=== PATIENT | male | born 1965 | race Caucasian/White ===

== ENCOUNTER 2024-04-24 07:33 | Emergency (ER) | payer OTHER, SELFPAY ==
[2024-04-24 07:48] VITALS: BP 155/92; PULSE 81; RESP 18; TEMP 36.2; O2SAT 93; BMI 34.6
--- NOTE | 2024-04-24 07:58 | CRLHL7_ITS ---
For Patients: As a result of the Century Cures Act, medical imaging exams and procedure reports are released immediately into your electronic medical record. You may view this report before your referring provider. If you have questions, please contact your health care provider. Indication: Injury. Technique: Three view(s) of the left thumb. Comparison: None available. Findings: There is a comminuted and displaced fracture of the thumb distal phalanx involving the tuft and extending proximally to the base along the radial margin. No definite intra-articular fracture extension is seen. There is approximately 1 shaft width palmar displacement of the main fracture fragment as well as an apex dorsally angulated butterfly fragment. There is adjacent soft tissue swelling. No definite soft tissue gas. No additional fracture is seen. Moderate thumb carpometacarpal osteoarthritis. Impression: Comminuted and displaced thumb distal phalanx fracture without definite intra-articular extension. Dictated by Mary Casey MD @ 04/24/2024 8:32:54 AM (Electronically Signed)
--- NOTE | 2024-04-24 08:03 | ED.GENADULT ---
HPI - General Adult General Chief complaint: Extremity Pain/Injury, Upper Stated complaint: Smashed thumb - Work Comp Time Seen by Provider: 04/24/24 07:55 History of Present Illness HPI narrative: It is a 58-year-old gentleman who works at [employer] heavy object on his left thumb today. This happened at work and he has split the skin open of his nail bed. He has no significant injuries elsewhere in the injuries are located in the distal tip of the left thumb. He appears to be up-to-date on his tetanus shot he has had no significant chest pain shortness a breath orthopnea or PND. Bleeding has been controlled. Related Data Home Medications ?Medication ?Instructions ?Recorded ?Confirmed aspirin 81 mg tablet,delayed 81 mg PO DAILY 04/24/24 04/24/24 release (Adult Low Dose Aspirin) losartan 50 mg tablet 50 mg PO DAILY 04/24/24 04/24/24 pravastatin 20 mg tablet 20 mg PO DAILY 04/24/24 04/24/24 Allergies Allergy/AdvReac Type Severity Reaction Status Date / Time No Known Drug Allergies Allergy Verified 04/24/24 07:52 Review of Systems Status of ROS: Reports: 10 or more systems reviewed and unremarkable except as noted in History and below Exam Narrative: Exam Narrative: EXAM GENERAL: Patient appears comfortable and well. EYES: No scleral icterus. LYMPH: No supraclavicular or cervical lymphadenopathy. SKIN: Visible skin seen during exam normal or with benign process only. EXT: Injury noted left thumb with splitting of the nail and slight abrasions. HEART: Regular rate and rhythm with no murmurs, rubs, or gallops. LUNGS: Clear to auscultation bilaterally with no crackles or wheezes. ABD: Soft, non tender, non distended. PSYCH: Good eye contact, speech is not pressured. Const: Vital Signs, click to edit/add: Vital Signs - 24 hr 04/24/24 07:48 Temperature 97.2 F L Pulse Rate [Pulse Oximeter] 81 Respiratory Rate 18 Blood Pressure [Ri ght Upper Arm] 155/92 H Pulse Oximetry 93 Oxygen Delivery Me thod Room Air Course Course ED Course: Patient seen and examined. X-ray of the left thumb ordered. Vital Signs Vital signs: Initial Vital Signs Temperature 97.2 F L 04/24/24 07:48 Temperature Source Temporal Artery Scan 04/24/24 07:48 Pulse Rate 81 04/24/24 07:48 Respiratory Rate 18 04/24/24 07:48 Blood Pressure 155/92 H 04/24/24 07:48 Blood Pressure Mean 113 H 04/24/24 07:48 Blood Pressure Position Supine 04/24/24 07:48 Pulse Oximetry 93 04/24/24 07:48 Oxygen Delivery Method Room Air 04/24/24 07:48 Vital Signs Temperature 97.2 F L 04/24/24 07:48 Pulse Rate 81 04/24/24 07:48 Respiratory Rate 18 04/24/24 07:48 Blood Pressure 155/92 H 04/24/24 07:48 Pulse Oximetry 93 04/24/24 07:48 Oxygen Delivery Method Room Air 04/24/24 07:48 Temperature 97.2 F L 04/24/24 07:48 Pulse Rate 81 04/24/24 07:48 Respiratory Rate 18 04/24/24 07:48 Blood Pressure 155/92 H 04/24/24 07:48 Pulse Oximetry 93 04/24/24 07:48 Oxygen Delivery Method Room Air 04/24/24 07:48 Medical Decision Making MDM Narrative Medical decision making narrative: Patient is a 58-year-old gentleman who his left thumb with a hammer at work. He has suffered number of skin tears and a crush nail. Also has fracture of the tip of the digit. We did clean the wound major his tetanus shot is up-to-date and dress the wound. I recommended Augmentin for the next 7 days and follow-up with primary care/Orthopedics. Tylenol Motrin as needed for pain. Discharge Plan Discharge Clinical Impression: Finger injury Patient Disposition: Home, Self-Care Condition: Stable Instructions: Finger Fracture (ED) Additional Instructions: Augmentin as directed Tylenol Motrin Ice Follow-up with your doctor to arrange orthopedic care. Activity Level: No Restrictions Discharge Diet: Regular Prescriptions: No Action losartan 50 mg tablet 50 mg PO DAILY pravastatin 20 mg tablet 20 mg PO DAILY aspirin [Adult Low Dose Aspirin] 81 mg tablet,delayed release (DR/EC) 81 mg PO DAILY Follow Up/Referrals: Provider,Not a Local [Primary Care Provider] - Stand Alone Forms: [facility] Info Instructions
--- OUTSIDE RECORDS SUMMARY | 2024-04-24 08:28 | XMS_ITS | Encounter Summary ---
Author Organization [facility] Address [address] [place] [id number] Care Team Providers Care [employer] Superintendent Name Role Phone Mary Arleth Torres APRN, C.N.P., D.N.P. Primary Care Provider Reason for Visit * Reason Comments Participation in Child's Genetic Testing Encounter Details Date Type Department Care Team (Late st Contact Info) Description 02/11/2024 Documentation Department of Medical Genetics in [place], [place] [address] [place] [address] Kristi Castillo M.S., [facility] [address] [place] [address] Participation in Child's Genetic Testing Social History Tobacco Use Types Packs/Day Years Used Date Smoking Tobacco: Never Passive Smoke Exposure: Never Smokeless Tobacco: Current Chew Comments:Chews a tin in 2-3 days. Since age 19. Alcohol Use Standard Drinks/Week Comments Yes 2 (1 standard drink = 0.6 oz pur e alcohol) maybe once month or less Humiliation, Afraid, Rape, and Kick questionnair e Answer Date Recorded Within the last year, have y ou been afraid of your partner or ex-partner? No 09/21/2021 Within the last year, have y ou been humiliated or emotionally abused in other ways by your partner or ex-partner? No Within the last year, have y ou been kicked, hit, slapped, or otherwise physically hurt by your partner or ex-partner? No 09/21/2021 Within the last year, have y ou been raped or forced to have any kind of sexual activity by your partner or ex-partner? No 09/21/2021 Social Connection and Isolat ion Panel [NHANES] Answer Date Recorded In a typical week, how many times do you talk on the phone with family, friends, or neighbors? More than three times a week 09/21/2021 How often do you get togethe r with friends or relatives? More than three times a week 09/21/2021 How often do you attend [facility] or shinto services? More than 4 times per year 09/21/2021 Do you belong to any clubs o r organizations such as restorationism groups, unions, fraternal or athletic groups, or school groups? No 09/21/2021 How often do you attend meet ings of the clubs or organizations you belong to? Never 09/21/2021 Are you , , di vorced, , never , or living with a partner? 09/21/2021 AUDIT-C Answer Date Recorded Q1: How often do you have a drink containing alc ohol? Monthly or less 09/21/2021 Q2: How many drinks containi ng alcohol do you have on a typical day when you are drinking? 3 or 4 09/21/2021 Q3: How often do you have si x or more drinks on one occasion? Less than monthly 09/21/2021 Overall Financial Resource Strain (CARDIA) Answe r Date Recorded How hard is it for you to pa y for the very basics like food, housing, medical care, and heating? Not hard at all 09/21/2021 PHQ-2 Answer Date Recorded PHQ-2 Score 0 08/22/2023 [facility] - Occupational Stress Questionnaire Answer Date Recorded Do you feel stress - tense, restless, nervous, or anxious, or unable to sleep at night because your mind is troubled all the time - these days? Not at all 09/21/2021 Exercise Vital Sign Answer Date Recorde d On average, how many days pe r week do you engage in moderate to strenuous exercise (like a brisk walk)? 0 days 09/21/2021 On average, how many minutes do you engage in exercise at this level? 0 min 09/21/2021 Hunger Vital Sign Answer Date Recorded Within the past 12 months, y ou worried that your food would run out before you got the money to buy more. Never true 09/21/20 21 Within the past 12 months, t he food you bought just didn't last and you didn't have money to get more. Never true 09/21/2021 PRAPARE - Transportation Answer Date Re corded In the past 12 months, has l ack of transportation kept you from medical appointments or from getting medications? No 09/12 In the past 12 months, has l ack of transportation kept you from meetings, work, or from getting things needed for daily living? No 09/21/2021 Housing Stability Vital Sign Answer Tawanda e Recorded In the last 12 months, was t here a time when you were not able to pay the mortgage or rent on time? No 09/21/2021 In the last 12 months, how many places have you lived? 1 09/21/2021 In the last 12 months, was t here a time when you did not have a steady place to sleep or slept in a halfway (including now)? No 09/21/2021 Nutrition Answer Date Recorded On average, how many serving s of fruits and vegetables do you eat per day (serving size is equal to 1 cup or approximately the size of a tennis ball)? 0-1 09/21/2021 Dental Answer Date Recorded Dental: Regular Dentist Yes 11/12/19 23 Employment Answer Date Recorded Employment status Employed and actively working without restrictions 09/21/2021 Education Answer Date Recorded What is the highest level of school you have completed or the highest degree you have received? Associate degree: occupational, technical, or vocational program 09/21/2021 Sex and Gender Information Value Date Recorded Sex Assigned at Not on file Gender Identity Not on file Sexual Orientation Not on file documented as of this encounter Progress Notes * Kristi Castillo M.S., [facility] [place] 02/11/2024 8:45 AM CDT CHIEF COMPLAINT/PURPOSE OF VISIT Parental testing for whole genome sequencing. HISTORY OF PRESENT ILLNESS The patient's child has been admitted to the CVICU and meets clinical criteria for whole genome sequencing. This was reviewed by Dr. Tricia Bull MD and Dr. Frieda Sequeira. Please refer to Dr. Sequeira's clinical note in the proband's chart for further details. IMPRESSION/REPORT/PLAN #1 Parental testing for whole genome sequencing We discussed the role of whole genome sequencing (WGS) as a potential means to identify an underlying genetic cause for their child's medical concerns. After we reviewed the benefits and limitations of testing, it was determined that whole genome sequencing for their child would be pursued. As partof this process a DNA specimen from the parents is also included. Testing will be completed by [facility] clinical laboratory. PLAN: A blood sample will be collected and used to facilitate interpretation of their child's WGS testing. Results of WGS will be issued under the child's name and documented in the child's medical record. documented in this encounter Plan of Treatment Not on file documented as of this encounter Visit Diagnoses Diagnosis Testing Genetic- Primary documented in this encounter Care Teams [employer] Superintendent Relationship Specialty Start Date End Date Arleth Hernandez APRN, C.N.P., D.N.P. [address] [place] [address] PCP - General 02/23/21 02/14/24 documented as of this encounter
--- OUTSIDE RECORDS SUMMARY | 2024-04-24 08:28 | XMS_ITS | Referral Summary ---
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 Primary Care Provid er Source Comments Patient records contain information from all sites at [facility]. For routine questions regarding patient records, call [phone] during business hours, M-F 8:00 AM - 5:00 PM Central Time. Record requests for emergency care only can be directed to [phone] at any time.[facility] Encounters Date Type Department Care Team Description 03/05/2024 8:30 AM CDT Office Visit Department of Orthopedic Surgery in [address] [phone] Chavez Randall D.P.MJosefina Diabetes Mellitus Type 2 (HCC) (Primary Dx) Discharge Disposition: Home or Self Care 02/15/2024 Clinical Communication Department of Family Medicine, [facility], in [place], [place] [address] [place] [phone] Matt Hernandez APRN, C.N.P. 02/15/2024 10:30 AM CDT Office Visit Department of Family Medicine, [facility], in [place], [place] [address] [place] [phone] Matt Hernandez APRN, C.N.P. Diabetes Mellitus Type 2 (HCC) (Primary Dx); Hyperlipidemia; Hypertension Essential Primary 02/15/2024 6:59 AM CDT - 02/15/2024 11:59 PM CDT Hospital Encounter Department of Laboratory Medicine in [place], [place] [address] [place] [address] Amber Romero D.O. Diabetes Mellitus Type 2 Hyperglycemia (HCC); Hyperlipidemia Discharge Disposition: Home or Self Care 02/15/2024 6:58 AM CDT Hospital Encounter Department of Laboratory Medicine in [place], [place] [address] [place] [address] Amber Romero D.O. Diabetes Mellitus Type 2 Hyperglycemia (HCC); Hyperlipidemia; Pain Knee Left Discharge Disposition: Home or Self Care 02/11/2024 Documentation Department of Medical Genetics in [place], [place] [address] [place] [address] Kristi Castillo M.S., [facility] [place]ation in Child's Genetic Testing from Last 3 Months Allergies No known active allergies Medications Medication Sig Dispensed Refills Start Date End Date Status losartan (COZAAR) 50 mg tablet Take 1 tablet (50 mg total) by mouth daily. 90 tablet 3 08/22/2023 Active lancetsIndications:Indu betes Mellitus Type 2 Hyperglycemia (HCC) 1 each daily. 100 each 2 09/19/2023 Active alcohol swabs pads, medicatedIndications:D iabetes Mellitus Type 2 Hyperglycemia (HCC) Use as needed for diabetes control 1500 each 3 09/19/2023 Active blood sugar diagnostic stripsIndications:Diab etes Mellitus Type 2 Hyperglycemia (HCC) 1 test daily. 100 test 3 09/19/2023 Active blood-glucose meter miscIndications:Diabet es Mellitus Type 2 Hyperglycemia (HCC) Test as directed for diabetes control. 1 each 1 09/19/2023 Active blood glucose ctl high,nml,low solutionIndications:Di abetes Mellitus Type 2 Hyperglycemia (HCC) Glucose control solution provides an easy way to ensure accurate blood glucose testing. 1 each 11 09/19/2023 Active pravastatin (PRAVACHOL) 40 mg tablet Take 1 tablet (40 mg total) by mouth daily. 90 tablet 3 02/15/20[address] tablet Take 81 mg by mouth daily. Active Active Problems Problem Noted Date Diagnosed Date Diabetes Mellitus Type 2 10/12/2023 Body Mass Index 35.0 To 35.9 Adult 09/19/2023 Hypertension Essential Primary 08/22/2023 Nicotine Dependence Chewing Tobacco 09/21/2021 Overview: Chew daily, but finishes a tin in 2-3 days. Since age 19. Attempted quitting a couple of times, with longest being 6-8 months. Fatty Liver 01/15/2008 Abnormal Serum Enzyme Test 08/07/2007 Hyperlipidemia 06/28/2007 Lipoma 10/10/2005 Resolved Problems Problem Noted Date Diagnosed Date Resolved Date Dyspnea NOS 11/14/2006 09/21/2021 Mass Head 10/10/2005 09/21/2021 Immunizations Name Administration Dates Next Due H1N1 All Forms 11/23/2009 Influenza, Injectable, Mdck, Quadrivalent 2020 Influenza, Injectable, Quadrivalent 08/24/2020 Td, (Adult) Unspecified 09/21/2005 Tdap 05/27/2015 Social History Tobacco Use Types Packs/Day Years Used Date Smoking Tobacco: Never Passive Smoke Exposure: Never Smokeless Tobacco: Current Chew Tobacco Cessation:Ready to Q uit: Not Asked; Counseling Given: Not Answered Comments:Chews a tin in 2-3 days. Since [...] week 09/21/2021 How often do you attend chur or samaritan services? More than 4 times per year 09/21/2021 Do you belong to any clubs o r organizations such as druze groups, unions, fraternal or athletic groups, or [...] Answer Date Recorded PHQ-2 Score 0 08/22/2023 [facility] - [...] place to sleep or slept in a senior care (including now)? No 09/21/2021 Nutrition Answer Date Recorded On average, how many serving s of fruits and vegetables do you eat per day (serving size is equal to 1 cup or approximately the size of a tennis ball)? 0-1 09/21/2021 Dental Answer Date Recorded Dental: Regular Dentist Yes 11/12/19 Employment Answer Date Recorded Employment status Employed [...] on file Sexual Orientation Not on file Last Filed Vital Signs Vital Sign Reading Time Taken Comments Blood Pressure 126/81 02/15/2024 10:16 AM CDT Pulse 84 02/15/2024 10:16 AM CDT Temperature 36.4 ??C (97.6 ??F) 02/15/2024 10:16 AM C DT Respiratory Rate 14 02/15/2024 10:16 AM CDT Oxygen Saturation 95% 11/04/2021 10:43 AM SPRING FITTER HELPER Inhaled Oxygen Concentration - - Weight 117 kg (258 lb 2.5 oz) 02/15/2024 10:16 A M CDT Height 187 cm (6' 1.62) 02/15/2024 10:16 AM CDT Body Mass Index 33.49 02/15/2024 10:16 AM CDT Plan of Treatment Not on file Procedures Procedure Name Priority Date/Time Associated Diagnosis Comments ALBUMIN, RANDOM, U Routine 02/15/2024 7: 15 AM CDT Diabetes Mellitus Type 2 Hyperglycemia (HCC) Hyperlipidemia CBC WITHOUT DIFFERENTIAL, B Routine 02/15/2024 7:13 AM CDT Pain Knee Left Diabetes Mellitus Type 2 Hyperglycemia (HCC) Hyperlipidemia LIPID PANEL, S Routine 02/15/2024 7:13 AM CDT Diabetes Mellitus Type 2 Hyperglycemia (HCC) Hyperlipidemia COMPREHENSIVE METABOLIC PANEL, S/P Routine 02/15/2024 7:13 AM CDT Diabetes Mellitus Type 2 Hyperglycemia (HCC) Hyperlipidemia HEMOGLOBIN A1C, B Routine 02/15/2024 7:1 3 AM CDT Diabetes Mellitus Type 2 Hyperglycemia (HCC) Hyperlipidemia [facility] Routine 02/11/2024 10:28 AM CDT HIV-1/-2 AG AND AB SCREEN, PLASMA Routine 09/22/2021 4:41 PM SPRING FITTER HELPER Screening For Venereal Disease HCV AB SCRN W/REFLEX TO HCV PCR, S Routine 02/28/2018 8:25 AM CDT Screening Examination For Viral Disease COLONOSCOPY Routine 04/28/2015 from Last 3 Months or Most Recently Relevant to Health Maintenance Results * Albumin, Random, Urine (02/15/2024 7:15 AM CDT) Microalbumin <12.0 mg/L 02/15/2024 8:06 AM CDT [facility] Comment:If clinically indica justine, contact the lab for additional testing. Creatinine 204 mg/dL 02/15/2024 8:06 AM CDT [facility] Albumin/Creatinine Ratio <6 <17 mg/g 02/15/2024 8:06 AM CDT [facility] Comment: This ratio may not correspond with the reference range because one or both of the values used to calculate the ratio was above or below the quantification limits. Urine (Urine, Midstream) 02/15/2024 7:15 AM CDT 02/15/2024 7:15 AM CDT Amber Romero D.O. LAB URINE ORDERABLES [facility] [address] [place] [address], [facility] in [place] [address] [place] [address] * (ABNORMAL) Lipid Panel (02/15/2024 7:13 AM CDT) Triglycerides 162(H) mg/dL 02/15/2024 8:47 AM CDT [facility] Comment: ----REFERENCE VALUE---- Normal: <150 mg/dL Borderline High: 150-199 mg/dL High: 200-499 mg/dL Very High: > or =500 mg/dL Cholesterol, Total 144 mg/dL 2023 8:47 AM CDT [facility] Comment: ----REFERENCE VALUE---- Desirable: < 200 mg/dL Borderline High: 200 - 239 mg/dL High: > or = 240 mg/dL Cholesterol, LDL, Calculated 89 mg/dL 02/15/2024 8:47 AM CDT [facility] Comment: ----REFERENCE VALUE---- Desirable: <100 mg/dL Above Desirable: 100-129 mg/dL Borderline High: 130-159 mg/dL High: 160-189 mg/dL Very High: >=190 mg/dL ----ADDITIONAL INFORMATION---- LDL cholesterol calculated using the Becker/NIH equation. Cholesterol, HDL 26(L) >=40 mg/dL 02/15/20 8:47 AM CDT [facility] Cholesterol, Non-HDL, Calculated 118 mg/dL 02/15/2024 8:47 AM CDT [facility] Comment: ----REFERENCE VALUE---- Desirable: <130 mg/dL Above Desirable: 130-159 mg/dL Borderline High: 160-189 mg/dL High: 190-219 mg/dL Very High: > or =220 mg/dL Fasting (8 HR or more) Yes 02/15/2024 7:14 AM CDT [facility] Blood (Blood, Venous) 02/15/2024 7:13 AM CDT 02/15/2024 7:14 AM CDT Amber Romero D.O. LAB BLOOD ADD-ON [facility] [address] [place] [address], [facility] OW[facility] in [place] [address] [place] [address] * CBC without Differential (02/15/2024 7:13 AM CDT) Hemoglobin 15.6 13.2 - 16.6 g/dL 02/15/2024 7:27 AM CDT [facility] Hematocrit 46.1 38.3 - 48.6 % 02/15/2024 7:27 AM CDT [facility] Erythrocytes 5.42 4.35 - 5.65 x10(12)/L 02/15/2024 7:27 AM CDT [facility] MCV 85.1 78.2 - 97.9 fL 02/15/2024 7:27 AM CDT [facility] RBC Distrib Width 13.2 11.8 - 14.5 % 02/15/2024 7:27 AM CDT [facility] Platelet Count 197 135 - 317 x10(9)/L 02/15/2024 7:27 AM CDT [facility] Leukocytes 8.0 3.4 - 9.6 x10(9)/L 02/15/2024 7:27 AM CDT [facility] Blood (Blood, Venous) 02/15/2024 7:13 AM CDT 02/15/2024 7:14 AM CDT Amber Romero D.O. LAB BLOOD ADD-ON [facility] [address] [place] [address], [place] [facility] in [place] [address] [place] [address] * (ABNORMAL) Hemoglobin A1c (02/15/2024 7:13 AM CDT) Hemoglobin A1c, B 5.8(H) 4.2 - 5.6 % 02/15/2024 8:09 AM CDT [facility] Comment: Hemoglobin A1c values of 5.7-6.4 percent indicate an increased risk for developing diabetes mellitus. In diabetic patients, HbA1c goals should be discussed with healthcare provider. Blood (Blood, Venous) 02/15/2024 7:13 AM CDT 02/15/2024 7:14 AM CDT Amber Romero D.O. LAB BLOOD ADD-ON [facility] [address] [place] [address], [facility] OW[facility] in [place] [address] [place] [address] * Comprehensive Metabolic Panel (02/15/2024 7:13 AM CDT) Potassium, P 4.4 3.6 - 5.2 mmol/L 02/15/2024 8:47 AM CDT [facility] Sodium, P 139 135 - 145 mmol/L 02/15/2024 8:47 AM CDT [facility] Chloride, P 105 98 - 107 mmol/L 02/15/2024 8:47 AM CDT [facility] Bicarbonate, P 24 22 - 29 mmol/L 02/15/2024 8:47 AM CDT [facility] Anion Gap, P 10 7 - 15 02/15/2024 8:47 AM CDT [facility] BUN (Blood Urea Nitrogen), P 16 8 - 24 mg/dL 02/15/2024 8:47 AM CDT [facility] Creatinine 0.89 0.74 - 1.35 mg/dL 02/15/2024 8:47 AM CDT [facility] Estimated GFR (eGFR) >90 >=60 mL/min/BS A 02/15/2024 8:47 AM CDT [facility] Comment: Estimated GFR calculated using the 2020 CKD_EPI creatinine equation. Calcium, Total, P 8.9 8.6 - 10.0 mg/dL 02/15/2024 8:47 AM CDT [facility] Glucose, P 104 70 - 140 mg/dL 02/15/2024 8:47 AM CDT [facility] Protein, Total, P 7.1 6.3 - 7.9 g/dL 02/15/2024 8:47 AM CDT [facility] Albumin, P 4.2 3.5 - 5.0 g/dL 02/15/2024 8:47 AM CDT [facility] Aspartate Aminotransferase (AST), P 25 8 - 48 U/L 02/15/2024 8:47 AM CDT [facility] Alkaline Phosphatase, P 83 40 - 129 U/L 02/15/2024 8:47 AM CDT [facility] Alanine Aminotransferase (ALT), P 30 7 - 55 U/L 02/15/2024 8:47 AM CDT [facility] Bilirubin, Total, P 0.7 0.0 - 1.2 mg/dL 02/15/2024 8:47 AM CDT [facility] Blood (Blood, Venous) 02/15/2024 7:13 AM CDT 02/15/2024 7:14 AM CDT Amber Romero D.O. LAB BLOOD ADD-ON [facility] [address] [place] [address], [facility] OW[facility] in [place] [address] [address] * [facility] - Sent Out Lab (02/11/2024 10:28 AM CDT) Test Name rapid genome 02/11/2024 2:43 PM CDT [facility] Result SEE COMMENT 02/11/2024 3:33 PM CDT [facility] Comment: Specimen for relative received, testing to follow. See final combined results under proband specimen order when testing is complete. 02/11/2024 10:2 8 AM CDT 02/11/2024 2:43 PM CDT Tricia CURRY MISC ORDERA BLES [facility] [address], [address] [place] [address], [place] [facility] [address], [address] [place] [address] * HIV-1/-2 Ag and Ab Screen, Plasma (09/22/2021 4:41 PM SPRING FITTER HELPER) HIV Ag/Ab Screen, P Negative Negative 09/24/2021 2:48 PM SPRING FITTER HELPER [facility] Comment: Negative result does not rule out HIV infection. If exposure to HIV infection occurred <14 days ago, contact the laboratory to request addition of HIV-1 RNA detection / quantification test. HIV-1 p24 Ag Screen, P Negative Negative 09/24/2021 2:48 PM SPRING FITTER HELPER [facility] Comment: Negative result does not rule out HIV infection. If exposure to HIV infection occurred <14 days ago, contact the laboratory to request addition of HIV-1 RNA detection / quantification test. HIV-1 Ab Screen, P Negative Negative 2020 2:48 PM SPRING FITTER HELPER [facility] Comment: Negative result does not rule out HIV infection. If exposure to HIV infection occurred <14 days ago, contact the laboratory to request addition of HIV-1 RNA detection / quantification test. HIV-2 Ab Screen, P Negative Negative 2020 2:48 PM SPRING FITTER HELPER [facility] Comment: Negative result does not rule out HIV infection. If exposure to HIV infection occurred <14 days ago, contact the laboratory to request addition of HIV-1 RNA detection / quantification test. Blood (Blood, Venous) 09/22/2021 4:41 PM SPRING FITTER HELPER 09/23/2021 11:57 AM SPRING FITTER HELPER Arleth Hernandez APRN, C.N.P., D.N.P. LAB M ICROBIOLOGY - BLOOD ORDERABLES [facility] [address] [place] [address], [place] [facility] in [place] [address] [place] [address] * HCV AB Scrn w/Reflex to HCV PCR, S (02/28/2018 8:25 AM CDT) HCV Ab Screen, S Negative Negative 03/01/2018 8:38 AM CDT [facility] Comment:[id number] rat io is <1.00. Blood (Blood, Venous) 02/28/2018 8:25 AM CDT 03/01/2018 6:57 AM CDT Kar Shepherd APRN, C.N.P. LAB MICROBIOL OGY - BLOOD ORDERABLES [facility] [address] [place] [address] * Colonoscopy (04/28/2015) Pathologist [facility] EXT Colonoscopy Abnormal - See Scanned Report for Details Normal - See Scanned Report for Details, HIMS - Report Received and Scanned Historical Provider GI PROCEDURE ORDERAB LES from Last 3 Months or Most Recently Relevant to Health Maintenance Care Teams [employer] Air[employer] Officer Relationship Specialty Start Date End Date Matt Hernandez APRN, C.N.P. [address] [place] [phone] PCP - General Family Medicine 02/15/24
--- OUTSIDE RECORDS SUMMARY | 2024-04-24 08:28 | XMS_ITS | Encounter Summary ---
Author Organization [facility] Address [address] [place] [address] Care Team Providers Care Lube Technician Name Role Phone Matt Hernandez APRN, C.N.P. Primary Care Provid er Reason for Referral * Outpatient (Routine) - Authorized Specialty Diagnoses / Procedures Referred By Marianela arzate Referred To Contact Family Medicine Matt Hernandez APRN, C.N.P. [address], [place] [address] [facility] Region Referral ID Status Reason Start Date Expiration Date V isits Requested Visits Authorized [id number] Authorized 02/15/2024 08/16/2025 1 1 Reason for Visit * Reason Comments Diabetes * Outpatient (Routine) - Closed Specialty Diagnoses / Procedures Referred By Marianela arzate Referred To Contact Family Medicine Diagnoses Diabetes Mellitus Type 2 Hyperglycemia (HCC) Hyperlipidemia Hypertension Essential Primary Amber Romero D.O. [address], [place] [address] [facility] Region Referral ID Status Reason Start Date Expiration Date Visits Re quested Visits Authorized [id number] Closed 09/19/2023 09/18/2026 1 1 Encounter Details Date Type Department Care Team (Late st Contact Info) Description 02/15/2024 10:30 AM CDT Office Visit Department of Family Medicine, [facility], in [place], [place] [address] [phone] Matt Hernandez, RAISIN WASHER, C.N.P. [address] [place] [address] Diabetes Mellitus Type 2 (HCC) (Primary Dx); Hyperlipidemia; Hypertension Essential Primary Social History Tobacco Use Types Packs/Day Years [...] 09/21/2021 How often do you attend chur ch or baptism services? More than 4 times per year 09/21/2021 Do you belong to any clubs o r organizations such as samaritan groups, unions, fraternal or athletic groups, or [...] Answer Date Recorded PHQ-2 Score 0 08/22/2023 [facility] ional Health - Occupational Stress [...] place to sleep or slept in a intermediate (including now)? No 09/21/2021 Nutrition Answer Date [...] on file documented as of this encounter Last Filed Vital Signs Vital Sign Reading Time Taken Comments Blood Pressure 126/81 02/15/2024 10:16 AM CDT Pulse 84 02/15/2024 10:16 AM CDT Temperature 36.4 ??C (97.6 ??F) 02/15/2024 10:16 AM C DT Respiratory Rate 14 02/15/2024 10:16 AM CDT Oxygen Saturation - - Inhaled Oxygen Concentration - - Weight 117 kg (258 lb 2.5 oz) 02/15/2024 10:16 A M CDT Height 187 cm (6' 1.62) 02/15/2024 10:16 AM CDT Body Mass Index 33.49 02/15/2024 10:16 AM CDT documented in this encounter Progress Notes * Matt Hernandez, AIRAM, C.N.P. - 02/15/2024 10:30 AM CDT SUBJECTIVE CHIEF COMPLAINT/REASON FOR VISIT Gregorio Horowitz is a 58 y.o. male who presents for evaluation of Diabetes. HISTORY OF PRESENT ILLNESS Gregorio Horowitz is a delightful 58 y.o. male here for the management of chronic conditions. He has a history of diabetes in his managing his diabetes through diet and exercise. His previous hemoglobin A1c was 6.9 in his most current hemoglobin A1c is 5.8. He recently had a diabetic eye exam whichcame back normal. He takes pravastatin 20 mg daily. He does not complain of any chest pain, dyspnea, swelling in his legs, numbness, tingling. REVIEW OF SYSTEMS See History of Present Illness. Remainder of Review of Systems reviewed and are negative. MEDICAL HISTORY Patient Active Problem List Diagnosis Abnormal Serum Enzyme Test Fatty Liver Hyperlipidemia Lipoma Nicotine Dependence Chewing Tobacco Hypertension Essential Primary Body Mass Index 35.0 To 35.9 Adult Diabetes Mellitus Type 2 (HCC) SURGICAL HISTORY Past Surgical History: Procedure Laterality Date APPENDECTOMY N/A 07/14/2002 Appendectomy; for ruptured appendix with abscess or generalized peritonitis.. COLONOSCOPY 2014 FAMILY HISTORY Family History Problem Relation Age of Onset Liver cancer Mother Hypertension Mother Leukemia Father Heart valve replacement - prosthesis Father CABG - Coronary artery bypass graft Father Hypertension Father Diabetes Father No Known Problems Sister No Known Problems Sister No Known Problems Sister Hypertension Brother Hypertension Brother No Known Problems Brother No Known Problems Brother No Known Problems Maternal Grandmother No Known Problems Maternal Grandfather No Known Problems Paternal Grandmother No Known Problems Paternal Grandfather No Known Problems Daughter No Known Problems Son SOCIAL HISTORY Social History Tobacco Use Smoking status: Never Passive exposure: Never Smokeless tobacco: Current Types: Chew Tobacco comments: Chews a tin in 2-3 days. Since age 19. Substance Use Topics Alcohol use: Yes Alcohol/week: 2.0 - 3.0 standard drinks of alcohol Types: 2 - 3 Cans of beer per week Comment: maybe once month or less CURRENT MEDICATIONS Current Outpatient Medications on File Prior to Visit Medication Sig Dispense Refill alcohol swabs pads, medicated Use as needed for diabetes control 1500 each 3 blood glucose ctl high,nml,low solution Glucose control solution provides an easy way to ensure accurate blood glucose testing. 1 each 11 blood sugar diagnostic strips 1 test daily. 100 test 3 blood-glucose meter misc Test as directed for diabetes control. 1 each 1 lancets 1 each daily. 100 each 2 losartan (COZAAR) 50 mg tablet Take 1 tablet (50 mg total) by mouth daily. 90 tablet 3 [DISCONTINUED] pravastatin (PRAVACHOL) 20 mg tablet Take 1 tablet (20 mg total) by mouth daily. 90 tablet [address] tablet Take 81 mg by mouth daily. [DISCONTINUED] aspirin [address] tablet Take 81 mg by mouth daily. [DISCONTINUED] ondansetron ODT (ZOFRAN-ODT) 4 mg disintegrating tablet Dissolve 4 mg in the mouth. No current facility-administered medications on file prior to visit. ALLERGIES/CONTRAINDICATIONS No Known Allergies OBJECTIVE VITAL SIGNS BP 126/81 (BP Location: Right arm, Patient Position: Sitting, Cuff Size: Large) Pulse 84 Temp 36.4 ??C (Temporal) Resp 14 Ht 187 cm Wt 117 kg BMI 33.49 kg/m?? PHYSICAL EXAMINATION General: Patient is alert and oriented, in no acute distress. Capable of full communication withoutdifficulty. Patient is polite and cooperative. Appropriately dressed and normal hygiene. Cardiac: Regular rate and rhythm. No murmurs, gallops or rubs noted. Pulmonary: Clear to auscultation bilaterally. No expiratory wheeze. No accessory muscles of respiration noted. Extremities: No neurovascular compromise. No cyanosis, clubbing or edema. Mental: Affect is normal. Speech is clear and coherent. Thought process is appropriate. Good eye contact. ASSESSMENT / PLAN 1. Diabetes Mellitus Type 2 (HCC) -currently doing well. He will continue to manage his diabetes through diet and exercise. Will follow-up with him in 6 months along with a hemoglobin A1c. 2. Hyperlipidemia -the patient's LDL cholesterol is not at goal of less than 70. His his 89. Will increase his pravastatin to 40 mg daily. 3. Hypertension Essential Primary -currently well-controlled. Continue losartan 50 mg daily. Matt Hernandez APRN, C.N.P. documented in this encounter Plan of Treatment Scheduled Orders Name Type Priority Associated Diagnoses Orde r Schedule Hemoglobin A1c Lab Routine Diabetes Mellitus Type 2 (HCC) Expected: 08/16/2024 (Approximate), Expires: 02/14/2025 Scheduled Referrals Name Type Priority Associated Diagnoses Orde r Schedule Family Medicine office visit (clinic) Outpatient Referral Routine Expected: 08/16/2024, Expires: 05/16/2025 documented as of this encounter Visit Diagnoses Diagnosis Diabetes Mellitus Type 2 (HCC)- Primary Hyperlipidemia Hypertension Essential Primary documented in this encounter Care Teams Lube Technician Relationship Specialty Start Date End Date Matt Hernandez APRN, C.N.P. [address] [place] [phone] PCP - General Family Medicine 02/15/24 documented as of this encounter
--- OUTSIDE RECORDS SUMMARY | 2024-04-24 08:28 | XMS_ITS | Clinical Summary ---
Author Organization [facility] Address [place], [place] [address] Care Team Providers Care District Scout Executive Name Role Phone Matt Hernandez STILL OPERATOR BATCH OR CONTINUOUS Primary Care Provider [phone] Allergies No known active allergies Medications Medication Sig Dispensed Refills Start Date End Date Status losartan (COZAAR) 50 mg tablet Take 50 mg by mouth at bedtime. 08/22/2023 Active pravastatin (PRAVACHOL) 20 mg tablet Take 20 mg by mouth at bedtime. 08/28/2023 Active ondansetron (ZOFRAN ODT) 4 mg disintegrating tabletIndications:Nause a vomiting and diarrhea Place 1 Tablet (4 mg) on the tongue two times daily. 5 Tablet 10/26/2023 Active ibuprofen (ADVIL; MOTRIN) 600 mg tabletIndications:Compl ex tear of medial meniscus, current injury, left knee, initial encounter Take 1 Tablet (600 mg) by mouth every 6 hours if needed for Pain. Maximum of 3200 mg in 24 hours. 30 Tablet 10/30/2023 Active crutchIndications:Compl ex tear of medial meniscus, current injury, left knee, initial encounter For home use. Length of need 99 months 2 Each 10/30/2023 Active traMADoL (ULTRAM) 50 mg tabletIndications:Compl ex tear of medial meniscus, current injury, left knee, initial encounter Take 1 Tablet (50 mg) by mouth every 6 hours if needed for Pain. 15 Tablet 10/30/2023 Active Active Problems Problem Noted Date Diagnosed Date Complex tear of medial menis cus, current injury, left knee, initial encounter 10/29/2023 Diabetes mellitus, type 2 10/12/2023 Body mass index (BMI) 35.0-35.9, adult Primary hypertension 08/22/2023 Tobacco dependence due to chewing tobacco 2020 Overview: Chew daily, but finishes a tin in 2-3 days. Since age 19. Attempted quitting a couple of times, with longest being 6-8 months. Fatty liver 01/15/2008 Abnormal serum enzyme level, unspecified 007 Hyperlipidemia 06/28/2007 Lipoma 10/10/2005 Immunizations Name Administration Dates Next Due Td (Age >=7 Years) 09/21/2005 Social History Tobacco Use Types Packs/Day Years Used Date Smoking Tobacco: Never Passive Smoke Exposure: Never Smokeless Tobacco: Current Chew Tobacco Cessation:Ready to Q uit: No; Counseling Given: No Alcohol Use Standard Drinks/Week Comments Yes 0 (1 standard drink = 0.6 oz pur e alcohol) socially Sex and Gender Information Value Date Recorded Sex Assigned at Not on file Gender Identity Not on file Sexual Orientation Not on file Obstetrics History Last Filed Vital Signs Vital Sign Reading Time Taken Comments Blood Pressure 124/81 10/30/2023 2:55 PM HEAD OF MOBILE Pulse 52 10/30/2023 2:55 PM HEAD OF MOBILE Temperature 36 ??C (96.8 ??F) 10/30/2023 1:45 PM HEAD OF MOBILE Respiratory Rate 16 10/30/2023 2:55 PM HEAD OF MOBILE Oxygen Saturation 93% 10/30/2023 2:55 PM HEAD OF MOBILE Inhaled Oxygen Concentration - - Weight 121.6 kg (268 lb) 10/26/2023 3:33 PM HEAD OF MOBILE Height 185.4 cm (6' 1) 10/26/2023 3:33 PM HEAD OF MOBILE Body Mass Index 35.36 10/26/2023 3:33 PM HEAD OF MOBILE Plan of Treatment Health Maintenance Due Date Last Done Comments Tdap 1975 Depression screening for age 12+ 1976 HIV for age 15-65 1979 BMI (ht and wt on same day) for age 18+ 1982 Hepatitis C screening for ag e 18-79 1982 Lipids for age 45-75 2009 Zoster (shingles) series for age 50+ (1 of 2) 2014 Tetanus booster 09/21/2015 09/21/2005 COVID-19 vaccine series ( season) 2023 02/25/2021, 01/28/2021 Influenza for age 50-64 07/13/2024 Colonoscopy through age 75 10/09/203310/09, 04/28/2015 Pneumococcal series for age 6-64 Aged Out No longer eligible b ased on patient's age to complete this topic Procedures Procedure Name Priority Date/Time Associated Diagnosis Comments COLONOSCOPY 10/09/2023 1:33 PM HEAD OF MOBILE from Last 3 Months or Most Recently Relevant to Health Maintenance Results * COLONOSCOPY (10/09/2023 1:33 PM HEAD OF MOBILE) 10/09/2023 1:33 PM HEAD OF MOBILE Narrative Transcriptions Mihai Miranda MD - 10/09/2023 2:13 PM CST Patient Name: Gregorio Varghese Procedure Date: 10/09/2023 Gender: Male Date of : 1965 Admit Type: Ambulatory Procedure: Colonoscopy Proceduralist: Clyde Miranda MD [facility] Referring MD: Clyde Miranda MD Indications/Pre-Op Diagnosis: High risk colon cancer surveillance:Personal history of colonic polyps Medications: Monitored Anesthesia Care Procedure Description: The procedure, indications, potential complications, (bleeding, perforation, infection, adverse medication reaction, missed lesionsor polyps) and alternatives available were explained to the patient, who appeared to understand and indicated this. Opportunity for questionswas provided and informed consent obtained. The endoscope [id number] was passed through the anus andadvanced to the cecum, identified by appendiceal orifice and ileocecal valve.The colonoscopy was performed with ease. The patient tolerated theprocedure well. The quality of the bowel preparation was evaluated using theBBPS ([place] Bowel Preparation Scale) with scores of: Right Colon = 3, Transverse Colon = 3 and Left Colon = 3 (entire mucosa seen well withno residual staining, small fragments of stool or opaque liquid). Thetotal BBPS score equals 9. Complications: No immediate complications. Estimated Blood Loss & Specimen: Estimated blood loss was minimal. Specimen collected: Yes and sent to Laboratory Findings: The perianal and digital rectal examinations were normal. Pertinent negatives include normal sphincter tone. Normal appearing ileocecal valve Two sessile polyps were found in the ascending colon. The polyps were3 to 6 mm in size. These polyps were removed with a cold snare.Resection and retrieval were complete. A 5 mm polyp was found in the rectum. The polyp was sessile. Thepolyp was removed with a cold snare. Resection and retrieval werecomplete. The exam was otherwise without abnormality on direct and retroflexion views. Impressions/Post-Op Diagnosis: - Two 3 to 6 mm polyps in the ascending colon, removed with a cold snare. Resected and retrieved. - One 5 mm polyp in the rectum, removed with a cold snare. Resectedand retrieved. - The examination was otherwise normal on direct and retroflexionviews. Recommendation: - Await pathology results. - Dr. Miranda's office will contact you with biopsy/pathology results when available. Moderate Sedation: Deep sedation per anesthesia. Clyde Miranda MD 10/09/2023 2:13:04 PM This report has been signed electronically. Note Initiated On: 10/09/2023 1:33 PM Mihai Miranda MD PROCEDURE ORD from Last 3 Months or Most Recently Relevant to Health Maintenance Advance Directives * Full Code (Latest Code Status on File) Date Activated Date Inactivated Comments 10/30/2023 7:22 AM 10/30/2023 5:28 PM Question Answer Comments Code Status Discussion: Not Discussed * Full Code Date Activated Date Inactivated Comments 10/09/2023 7:01 AM 10/09/2023 5:01 PM Question Answer Comments Code Status Discussion: Reviewed Preferences * Full Code Date Activated Date Inactivated Comments 04/28/2015 8:52 AM 04/28/2015 4:18 PM Care Teams District Scout Executive Relationship Specialty Start Date End Date Matt Hernandez, STILL OPERATOR BATCH OR CONTINUOUS [address] [place] [address] PCP - General Nurse Practitioner 10/26/23
--- OUTSIDE RECORDS SUMMARY | 2024-04-24 08:28 | XMS_ITS | Encounter Summary ---
Author Organization [facility] Address [address] [place] [address] Care Team Providers Care Crm Functional Analyst Name Role Phone Matt Hernandez APRN C.N.P. Primary Care Provid er Encounter Details Date Type Department Care Team (Latest Contact Info) Description 02/15/2024 6:58 AM CDT Hospital Encounter Department of Laboratory Medicine in [place], [place] [address] [place] [phone] Amber Romero D.O. [address], [place] [address] Diabetes Mellitus Type 2 Hyperglycemia (HCC); Hyperlipidemia; Pain Knee Left Discharge Disposition: Home or Self Care Social History Tobacco Use Types Packs/Day Years [...] How often do you attend chur or sikh services? More than 4 times per year 09/21/2021 Do you belong to any clubs o r organizations such as yarsani groups, unions, fraternal or athletic groups, or [...] Answer Date Recorded PHQ-2 Score 0 08/22/2023 [facility] Occupat ional [facility] - Occupational Stress [...] on file documented as of this encounter Medications at Time of Discharge Medication Sig Dispensed Refills Start Date End Date alcohol swabs pads, medicatedIndications:Diab etes Mellitus Type 2 Hyperglycemia (HCC) Use as needed for diabetes control 1500 each 3 09/19/2023 blood glucose ctl high,nml,low solutionIndications:Diabe cam Mellitus Type 2 Hyperglycemia (HCC) Glucose control solution provides an easy way to ensure accurate blood glucose testing. 1 each 09/19/2023 blood sugar diagnostic stripsIndications:Diabete s Mellitus Type 2 Hyperglycemia (HCC) 1 test daily. 100 test 3 09/19/2023 blood-glucose meter miscIndications:Diabetes Mellitus Type 2 Hyperglycemia (HCC) Test as directed for diabetes control. 1 each 1 09/19/2023 lancetsIndications:Diabet es Mellitus Type 2 Hyperglycemia (HCC) 1 each daily. 100 each 2 09/19/2023 losartan (COZAAR) 50 mg tablet Take 1 tablet (50 mg total) by mouth daily. 90 tablet 3 08/22/2023 documented as of this encounter Plan of Treatment Not on file documented as of this encounter Procedures Procedure Name Priority Date/Time Associated Diagnosis Comments LIPID PANEL, S Routine 02/15/2024 7:13 AM [...] Diabetes Mellitus Type 2 Hyperglycemia (HCC) Hyperlipidemia documented in this encounter Results * CBC without Differential (02/15/2024 7:13 AM [...] CDT Amber Romero D.O. LAB BLOOD ADD-ON [facility] [address] [place] [address], [facility] in [place] [address] [place] [address] * (ABNORMAL) Lipid Panel (02/15/2024 7:13 AM [...] CDT Amber Romero D.O. LAB BLOOD ADD-ON [facility] [address] [place] [address], [facility] in [place] [address] [place] [address] * Comprehensive Metabolic Panel (02/15/2024 7:13 AM [...] CDT Amber Romero D.O. LAB BLOOD ADD-ON Performing Organization Address [facility] Co de Phone Number [facility] [address] [place] [address], [facility] in [place] [address] [place] [address] * (ABNORMAL) Hemoglobin A1c (02/15/2024 7:13 AM [...] CDT Amber Romero D.O. LAB BLOOD ADD-ON Performing Organization Address City/[facility]/ZIP Co de Phone Number [facility] [address] [place] [address], [place] [address], [facility] in [place] [address] [place] [address] documented in this encounter Visit Diagnoses Diagnosis Diabetes Mellitus Type 2 Hyperglycemia (HCC) Hyperlipidemia Pain Knee Left documented in this encounter Care Teams Crm Functional Analyst Relationship Specialty Start Date End Date Matt Hernandez APRN, C.N.P. [address] [place] [address] PCP - General Family Medicine 02/15/24 documented as of this encounter
--- OUTSIDE RECORDS SUMMARY | 2024-04-24 08:28 | XMS_ITS ---
Author Organization [facility] Address [address] [place] [address] Care Team Providers Care Model Photographers' Name Role Phone Unavailable Unavailable Unavailable Surgery Details Not on file Complications Check Surgery Details section. Procedure Estimated Blood Loss Check Surgery Details section. Procedure Findings Check Surgery Details section. Procedure Specimens Taken Check Surgery Details section.
--- OUTSIDE RECORDS SUMMARY | 2024-04-24 08:28 | XMS_ITS | Continuity of Care Document ---
Author Organization [place] [facility] Main Office Address [address] [place] [address] Assessment Encounter Date Assessment Date Assessment LastModified by Organization Details LastModified Time 02/05/2024 02/05/2024 Patient presents for orthotics picker / packer. Discussed instructions and dispensed instruction sheet to patient. Orthotics trimmed to properly fit shoes. Re check in approximately 2 weeks with provider. Please see prior clinician note for original encounter documentation and diagnosis. [email or web address] Not available 02/13/2024 09:05:56 Plan of Treatment Reminders Order Date Submit Date Provider Last Modified By Organization Details Last Modified Time Details Appointments None record ed. Lab None record ed. Referral None record ed. Procedures None record ed. Surgeries None record ed. Imaging None record ed. Medication Orders None record ed. Patient TargetsNo targets recorded. Patient InstructionsNo instructions recorded. Reason for Referral None Reported. 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 Medical Equipment None Reported. Medications Name Sig Start Date Stop Date Status Note LastModified by Organization Details LastModified Time losartan 50 mg tablet TAKE 1 TABLET BY MOUTH EVERY DAY active Not Available Not Available No t Available pravastatin 40 mg tablet TAKE 1 TABLET BY MOUTH EVERY DAY active Not Available Not Available No t Available Accu-Chek Softclix Lancets USE ONCE DAILY active Not Available Not Available No t Available tramadol 50 mg tablet TAKE 1 TABLET BY MOUTH EVERY 6 HOURS NEEDED FOR PAIN active Not Available Not Available No t Available pravastatin 20 mg tablet TAKE 1 TABLET BY MOUTH EVERY DAY active Not Available Not Available No t Available ibuprofen 600 mg tablet TAKE 1 TABLET (600 MG) BY MOUTH EVERY 6 HOURS IF NEEDED FOR PAIN. MAXIMUM OF 3200 MG IN 24 HOURS. active Not Available Not Available No t Available ondansetron 4 mg disintegrating tablet active Not Available Not Available Not Available Alcohol Prep Pads USE NEEDED FOR DIABETES CONTROL active Not Available Not Available No t Available Accu-Chek Guide test strips 1 TEST DAILY active Not Available Not Available No t Available Accu-Chek Guide Me Glucose Meter TEST DIRECTED FOR DIABETES CONTROL active Not Available Not Available No t Available Vitals None Recorded Social History None recorded. Functional Status None recorded. Mental Status None recorded. Family History Nothing Reported. Medical History No medical history recorded. Past Encounters Encounter ID Performer Location Encounter Start Date Encounter Closed Date Diagnosis/Indication Diagnosis SNOMED-CT Code [id number] Damián Nicolas DPM [facility] Main Office [address] [place] [address] 01/10/2024 11:07:11 01/10/2024 14:21:42 Acquired hallux limitus of right great toe 820541412862192 0 Acquired h allux limitus of left great toe 935551474072026 9 Acquired p es planus of left foot 491514875830805 Acquired p es planus of right foot 351168416563694 Metatarsal bharat of right foot 140459414681085 Metatarsal bharat of left foot 096099942746855 Health Concerns Section Related Observation LastModified by Organization Detai ls LastModified Time None Recorded Concern Status LastModified by Organization Details LastModified Time None Recorded Payers Encounter Date Sequence Insurance Name Policy Number Policy Morales Covered Member ID Morales Member ID Guarantor Name 02/05/2024 1 [place] [id number] Gregorio Horowitz [id number] Gregorio Horowitz
--- OUTSIDE RECORDS SUMMARY | 2024-04-24 08:28 | XMS_ITS | Encounter Summary ---
Author Organization [facility] Address [address] [place] [address] Care Team Providers Care Mule Tender Name Role Phone Matt Hernandez APRN, C.N.PJosefina Primary Care Provid er Reason for Referral * Outpatient (Routine) - Authorized Specialty Diagnoses / Procedures Referred By Marianela t Referred To Contact Orthopedic Surgery Chavez Randall D.P.M. [address] [place] [phone] [facility] Region Referral ID Status Reason Start Date Expiration Date V isits Requested Visits Authorized [id number] Authorized 03/05/2024 09/04/2025 1 1 Reason for Visit * Reason Comments Follow-up Follow-up Encounter Details Date Type Department Care Team ([facility] Contact Info) Description 03/05/2024 8:30 AM CDT Office Visit Department of Orthopedic Surgery in [place], [place] [address] [place] [phone] Chavez Randall D.P.M. [address] [place] [phone] Diabetes Mellitus Type 2 (HCC) (Primary Dx) Discharge Disposition: Home or Self Care Social [...] week 09/21/2021 How often do you attend [facility] or buddhist services? More than 4 times per year 09/21/2021 Do you belong to any clubs o r organizations such as presybeterian groups, unions, fraternal or athletic groups, or [...] Answer Date Recorded PHQ-2 Score 0 08/22/2023 [facility]at [facility] - Occupational Stress Questionnaire Answer Date Recorded [...] place to sleep or slept in a retirement (including now)? No 09/21/2021 Nutrition Answer Date [...] as of this encounter Progress Notes * Chavez Randall D.P.M. - 03/05/2024 8:30 AM CDT See dictation documented in this encounter Plan of Treatment Scheduled Referrals Name Type Priority Associated Diagnoses Order Schedule Orthopedic Surgery office visit (clinic) Outpatient Referral Routine Expected: 03/05/2024 (Approximate), Expires: 06/04/2025 documented as of this encounter Visit Diagnoses Diagnosis Diabetes Mellitus Type 2 (HCC)- Primary documented in this encounter Care Teams Mule Tender Relationship Specialty Start Date End Date Matt Hernandez APRN, C.N.P. [address] [place] [phone] PCP - General Family Medicine 02/15/24 documented as of this encounter
--- OUTSIDE RECORDS SUMMARY | 2024-04-24 08:28 | XMS_ITS | Continuity of Care Document ---
Author Organization [place] [facility] Office Address [address] [facility] [place] [address] Assessment Encounter Date Assessment Date Assessment LastModified by Organization Details LastModified Time 03/05/2024 03/05/2024 Patient presents for orthotics check. Discussed instructions and any additional orders with patient. At this time, I don't see the need to modify his custom orthotic. The patient will be seen back in 1 year for orthotic check or earlier if problems arises. 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 Medical [...] Encounter Closed Date Diagnosis/Indication Diagnosis SNOMED-CT Code [id number] Damián Nicolas DPM [facility] Main Office [address] [place] [address] 02/12/2024 10:41:12 02/13/2024 09:53:49 Pain in left foot 617635334355125 Pain in right foot 21042 [id number] Chavez Randall DPM [place] Office [address] [place] [address] 03/05/2024 10:06:17 03/12/2024 15:45:23 Acquired hallux limitus of right great toe 395766463817049 0 Acquired h allux limitus of left great toe 249588991932684 9 Acquired p es planus of left foot 127004735369524 Acquired p es planus of right foot 181979463177392 Metatarsal bharat of right foot 201773788506916 Metatarsal bharat of left foot 666748854613401 Health Concerns Section Related Observation LastModified by Organization Detai ls LastModified Time None Recorded Concern Status LastModified by Organization Details LastModified Time None Recorded Payers Encounter Date Sequence Insurance Name Policy Number Policy Morales Covered Member ID Morales Member ID Guarantor Name 03/05/2024 1 [place] [id number] Gregorio Horowitz [id number] Gregorio Horowitz Notes Date Note Type Note Provider Name and Address Organization Details Recorded Time 03/05/2024 text/html HPI Notes: Patient presents today for evaluation for previously casted custom orthotics. Presents today as a re check after ambulating on the previously dispensed inserts. The patient has mentioned that the orthotics are doing well for him. His symptoms has resolved after the use of the custom orthotics at this time. Chavez Randall, RENETTA [address] [place], [address], [facility] 03/07/2024 11:43:05
--- OUTSIDE RECORDS SUMMARY | 2024-04-24 08:28 | XMS_ITS | Clinical Summary ---
Author Organization [facility] Address [address] [place] [address] Care Team Providers Care Restaurant District Manager Name Role Phone Matt Hernandez APRN C.N.P. Primary Care Provid er Source Comments Patient records contain information from all sites at [facility]. For routine questions regarding patient records, call [phone] during business hours, M-F 8:00 AM - 5:00 PM Central Time. Record requests for emergency care only can be directed to [phone] at any time.[facility] Allergies No known active allergies Medications Medication [...] NOS 11/14/2006 09/21/2021 Mass Head 10/10/2005 09/21/2021 Encounters Date Type Department Care Team Description 03/05/2024 8:30 AM CDT Office Visit Department of Orthopedic Surgery in [address] [phone] Chavez Randall, D.P.M. Diabetes Mellitus Type 2 (HCC) (Primary Dx) Discharge Disposition: Home or Self Care 02/15/2024 10:30 AM CDT Office Visit Department of Family Medicine, [facility], in [place], [place] [address] [place] [phone] Matt Hernandez, AIRAM, C.N.P. Diabetes Mellitus Type 2 (HCC) (Primary Dx); Hyperlipidemia; Hypertension Essential Primary 02/15/2024 6:59 AM CDT - 02/15/2024 11:59 PM CDT Hospital Encounter Department of Laboratory Medicine in [place], [place] [address] [phone] Amber Romero D.O. Diabetes Mellitus Type 2 Hyperglycemia (HCC); Hyperlipidemia Discharge Disposition: Home or Self Care 02/15/2024 6:58 AM CDT Hospital Encounter Department of Laboratory Medicine in [place], [place] [address] [phone] Amber Romero D.O. Diabetes Mellitus Type 2 Hyperglycemia (HCC); Hyperlipidemia; Pain Knee Left Discharge Disposition: Home or Self Care 02/15/2024 Clinical Communication Department of Family Medicine, [facility], in [place], [place] [address] [place] [address] Matt Hernandez, AIRAM, C.N.PJosefina 02/11/2024 Documentation Department of Medical Genetics in [place], [place] [address] [place] [address] Kristi Castillo M.S., [place] [facility] Participation in Child's Genetic Testing from Last 3 Months Immunizations Name Administration Dates Next Due H1N1 All Forms 11/23/2009 Influenza, Injectable, Mdck, Quadrivalent 2020 Influenza, Injectable, Quadrivalent 08/24/2020 Td, (Adult) Unspecified 09/21/2005 Tdap 05/27/2015 Family History Medical History Relation Name Comments Hypertension Brother 1 Sen Hypertension Brother 2 Tigre No Known Problems Brother 3 Jose Maria No Known Problems Brother 4 Seth No Known Problems Daughter Angelina CABG - Coronary artery bypass graft Father Jeff cabral Diabetes Father Jeff Thomas Heart valve replacement - prosthesis Father Jeff Thomas Hypertension Father Jeff Thomas Leukemia Father Jeff Thomas No Known Problems Maternal Grandfather Hair No Known Problems Maternal Grandmother Noelle Hypertension Mother Noelle Cummins Liver cancer Mother Noelle Cummins No Known Problems Paternal Grandfather William No Known Problems Paternal Grandmother Ute No Known Problems Sister 1 Noelle No Known Problems Sister 2 Lakisha No Known Problems Sister 3 Rose No Known Problems Son Hair Relation Name Status Comments Brother 1 Sen Alive Brother 2 Tigre Alive Brother 3 Jose Maria Alive Brother 4 Seth Alive Daughter Angelina Alive Father Jeff Thomas Maternal Grandfather Hair Maternal Grandmother Noelle Mother Noelle Cummins Paternal Grandfather William Paternal Grandmother Ute Sister 1 Noelle Alive Sister 2 Lakisha Alive Sister 3 Rose Alive Son Hair Alive Social History Tobacco Use Types Packs/Day Years [...] week 09/21/2021 How often do you attend [facility] or temple services? More than 4 times per year 09/21/2021 Do you belong to any clubs o r organizations such as sikh groups, unions, fraternal or athletic groups, or [...] Answer Date Recorded PHQ-2 Score 0 08/22/2023 [facility] - Occupational Stress Questionnaire Answer Date [...] place to sleep or slept in a custodial (including now)? No 09/21/2021 Nutrition Answer Date [...] CDT Oxygen Saturation 95% 11/04/2021 10:43 AM CAR WORKER Inhaled Oxygen Concentration - - Weight 117 kg (258 lb 2.5 oz) 02/15/2024 10:16 A M CDT Height 187 cm (6' 1.62) 02/15/2024 10:16 AM CDT Body Mass Index 33.49 02/15/2024 10:16 AM CDT Plan of Treatment Health Maintenance Due Date Last Done Comments CT Colonography 1964 Cologuard 1964 Diabetic Office Visit with Foot Exam 1964 Tobacco Cessation counseling 1964 Pneumococcal vaccine (0-64 years) (1 of 2 - PCV) 1970 Hepatitis B Vaccines (1 of 3 - 19+ 3-dose series) 1983 Zoster Vaccines (1 of 2) 2014 Influenza Vaccine (#1) 2023 08/23/2021, 2019 Depression Screening (Annual PHQ-2) 11/12/2023 Hemoglobin A1C 08/16/2024 02/15/2024, 11/0 06/2023, 02/15/2017 COVID-19 Vaccine (2022- season) 2024 02/25/2021, 01/28/2021 Postponed from 07/13/2023 (Patient Refused) Dilated Eye Exam 01/27/2025 01/28/2024 (Per formed elsewhere) Creatinine Level (Kidney Function Test) 02/14/2025 02/15/2024, 10/26/2023, 09/19/2023, Additional history exists Office Visit for Blood Pressure Check / Re-check 02/14/2025 02/15/2024 Potassium Level 02/14/2025 02/15/2024, 10/12, 09/19/2023, Additional history exists Sodium Level 02/14/2025 02/15/2024, 10/12, 09/19/2023, Additional history exists Urine Albumin 02/14/2025 02/15/2024 Visit: Chronic Disease, age 18+ 02/14/2025 02/15/2024, 02/15/2024 DTaP,Tdap,and Td Vaccines (2 - Td or Tdap) 05/27/2025 05/27/2015, 09/21/2005 Colonoscopy 10/09/2028 10/09/2023, 04/12, 04/28/2015, Additional history exists Colorectal Cancer Surveillance 10/09/2028 Lipid (Cholesterol) Screening 02/14/2029 02/15/2024, 08/22/2023, 09/08/2021, Additional history exists Hepatitis C Screening Completed 02/28/2018 HIV Screening Completed 09/22/2021 Procedures Procedure Name Priority Date/Time Associated Diagnosis [...] Diabetes Mellitus Type 2 Hyperglycemia (HCC) Hyperlipidemia [facility]. [employer] [facility]. Routine 02/11/2024 10:28 AM CDT HIV-1/-2 AG AND AB SCREEN, PLASMA Routine 09/22/2021 4:41 PM CAR WORKER Screening For Venereal Disease HCV AB SCRN [...] CDT Amber Romero D.O. LAB URINE ORDERABLES [facility] [address], [place] [address], [facility] OWAT [facility] [place] [address] [place] [address] * (ABNORMAL) Lipid Panel (02/15/2024 7:13 AM [...] CDT Amber Romero D.O. LAB BLOOD ADD-ON [facility] [address] [place] [address], [facility] OWAT [facility] in [place] [address] [place] [address] * CBC without Differential (02/15/2024 7:13 AM [...] D.O. LAB BLOOD ADD-ON Performing Organization Address [facility] Co de Phone Number [facility] [address], [place] [address], [facility] OW[facility] [place] [address] [place] [address] * (ABNORMAL) Hemoglobin A1c (02/15/2024 7:13 AM [...] D.O. LAB BLOOD ADD-ON Performing Organization Address City/[facility]/ZIP Co de Phone Number [facility] [address] [place] [address], [facility] OWAT [facility] [place] [address] [place] [address] * Comprehensive Metabolic Panel (02/15/2024 7:13 AM CDT) [facility] Potassium, P 4.4 3.6 - 5.2 mmol/L [...] CDT Amber Romero D.O. LAB BLOOD ADD-ON [facility] [address] [facility] [place] [address], [place] [facility] [place] [address] [place] [address] * [facility] - Sent Out Lab (02/11/2024 10:28 AM CDT) Test Name rapid genome 02/11/2024 2:43 PM CDT [facility] Result SEE COMMENT 02/11/2024 3:33 PM CDT [facility] Comment: Specimen for relative received, testing to follow. See final combined results under proband specimen order when testing is complete. 02/11/2024 10:2 8 AM CDT 02/11/2024 2:43 PM CDT Tricia Bull M.D. LAB [facility] [employer] MEDICINE [address] [place] [address], [address] [place] [address], [facility] [address] [place] [address], [address] [place] [address] * HIV-1/-2 Ag and Ab Screen, Plasma (09/22/2021 4:41 PM CAR WORKER) HIV Ag/Ab Screen, P Negative Negative 09/24/2021 2:48 PM CAR WORKER [facility] Comment: Negative result does not rule out HIV infection. If exposure to HIV infection occurred <14 days ago, contact the laboratory to request addition of HIV-1 RNA detection / quantification test. HIV-1 p24 Ag Screen, P Negative Negative 09/24/2021 2:48 PM CAR WORKER [facility] Comment: Negative result does not rule out HIV infection. If exposure to HIV infection occurred <14 days ago, contact the laboratory to request addition of HIV-1 RNA detection / quantification test. HIV-1 Ab Screen, P Negative Negative 2020 2:48 PM CAR WORKER [facility] Comment: Negative result does not rule out HIV infection. If exposure to HIV infection occurred <14 days ago, contact the laboratory to request addition of HIV-1 RNA detection / quantification test. HIV-2 Ab Screen, P Negative Negative 2020 2:48 PM CAR WORKER [facility] Comment: Negative result does not rule out HIV infection. If exposure to HIV infection occurred <14 days ago, contact the laboratory to request addition of HIV-1 RNA detection / quantification test. Blood (Blood, Venous) 09/22/2021 4:41 PM CAR WORKER 09/23/2021 11:57 AM CAR WORKER Arleth Hernandez APRN, C.N.P., D.N.P. LAB M ICROBIOLOGY - BLOOD ORDERABLES Performing Organization Address [facility]/ZIP Co de Phone Number [facility] [address] [place] [address], [facility] [place] [address] * HCV AB Scrn w/Reflex to HCV PCR, S (02/28/2018 8:25 AM CDT) HCV Ab Screen, S Negative Negative 03/01/2018 8:38 AM CDT [facility] Comment:Hpuurf-rn-ipydpa rat io is <1.00. Blood (Blood, Venous) 02/28/2018 8:25 AM CDT 03/01/2018 6:57 AM CDT Kar Shepherd APRN, C.N.P. LAB MICROBIOL OGY - BLOOD ORDERABLES [facility] [address] [place] [address] * Colonoscopy (04/28/2015) EXT Colonoscopy Abnormal - See Scanned Report for Details Normal - See Scanned Report for Details, HIMS - Report Received and Scanned Historical Provider GI PROCEDURE ORDERAB LES from Last 3 Months or Most Recently Relevant to Health Maintenance Care Teams Restaurant District Manager Relationship Specialty Start Date End Date Matt Hernandez, AIRAM, C.N.P. [address] [place] [phone] PCP - General Family Medicine 02/15/24
--- OUTSIDE RECORDS SUMMARY | 2024-04-24 08:28 | XMS_ITS | Encounter Summary ---
Author Organization [facility] Address [address] [place] [address] Care Team Providers Care Top Taper Machine Name Role Phone Matt Hernandez APRN, C.N.P. Primary Care Provid er Encounter Details Date Type Department Care Team (Latest Contact Info) Description 02/15/2024 6:59 AM CDT - 02/15/2024 11:59 PM CDT Hospital Encounter Department of Laboratory Medicine in [place], [place] [address] [place] [phone] Amber Romero D.O. [address] [phone] Diabetes Mellitus Type 2 Hyperglycemia (HCC); Hyperlipidemia Discharge Disposition: Home or Self Care Social [...] How often do you attend chur or mu-ism services? More than 4 times per year 09/21/2021 Do you belong to any clubs o r organizations such as buddhism groups, unions, fraternal or athletic groups, or [...] Answer Date Recorded PHQ-2 Score 0 08/22/2023 [facility] of Occupat ional Health - Occupational Stress [...] place to sleep or slept in a chcf (including now)? No 09/21/2021 Nutrition Answer Date [...] by mouth daily. 90 tablet 3 08/22/[address] tablet Take 81 mg by mouth daily. pravastatin (PRAVACHOL) 40 mg tablet Take 1 tablet (40 mg total) by mouth daily. 90 tablet 3 02/15/2024 documented as of this encounter Plan of Treatment Not on file documented as of this encounter Procedures Procedure Name Priority Date/Time Associated Diagnosis Comments ALBUMIN, RANDOM, U Routine 02/15/2024 7: 15 AM CDT Diabetes Mellitus Type 2 Hyperglycemia (HCC) Hyperlipidemia documented in this encounter Results * Albumin, Random, Urine (02/15/2024 7:15 [...] CDT Amber Romero D.O. LAB URINE ORDERABLES [facility] [address] [place] [address], [facility] [place] [address] [place] [address] documented in this encounter Visit Diagnoses Diagnosis Diabetes Mellitus Type 2 Hyperglycemia (HCC) Hyperlipidemia documented in this encounter Care Teams Top Taper Machine Relationship Specialty Start Date End Date Matt Hernandez APRN C.N.P. [address] [place] [phone] PCP - General Family Medicine 02/15/24 documented as of this encounter
--- OUTSIDE RECORDS SUMMARY | 2024-04-24 08:28 | XMS_ITS | Encounter Summary ---
Author Organization [facility] Address [address] [place] [address] Care Team Providers Care Restaurant Mgr Name Role Phone Matt Hernandez APRN, C.N.P. Primary Care Provid er Encounter Details Date Type Department Care Team (Late st Contact Info) Description 02/15/2024 Clinical Communication Department of Family Medicine, [facility], in [place], [place] [address] [phone] Matt Hernandez APRN, C.N.P. [address] [phone] Social History Tobacco Use Types Packs/Day Years [...] week 09/21/2021 How often do you attend [facility] or latter day services? More than 4 times per year 09/21/2021 Do you belong to any clubs o r organizations such as yazidi groups, unions, fraternal or athletic groups, or [...] Answer Date Recorded PHQ-2 Score 0 08/22/2023 [facility] of Occupat ional Health - Occupational Stress [...] place to sleep or slept in a longterm (including now)? No 09/21/2021 Nutrition Answer Date [...] on file documented as of this encounter Plan of Treatment Not on file documented as of this encounter Visit Diagnoses Not on filedocumented in this encounter Care Teams Restaurant Mgr Relationship Specialty Start Date End Date Matt Hernandez APRN, C.N.P. [address] [place] [phone] PCP - General Family Medicine 02/15/24 documented as of this encounter
== END 2024-04-24 09:04 | disposition home or self-care (01) ==
LOC: ED 08:26
PROVIDERS: Emergency Provider Internal Medicine
DX: S67.02XA Crushing injury of left thumb, initial encounter (principal); S62.525A Nondisplaced fracture of distal phalanx of left thumb, initial encounter for closed fracture; W23.1XXA Caught, crushed, jammed, or pinched between stationary objects, initial encounter; Y99.0 Civilian activity done for income or pay
CPT/HCPCS: 73140; 99283

== ENCOUNTER 2024-04-29 07:24 | Day surgery (SDC) | payer OTHER, SELFPAY ==
[2024-04-29] VITALS (15 sets, daily range): BP systolic 120–144; BP diastolic 75–99; PULSE 50–65; RESP 16; TEMP 36.6–36.9; O2SAT 94–98; BMI 34.5
--- OUTSIDE RECORDS SUMMARY | 2024-04-29 07:30 | XMS_ITS ---
Author Organization [facility] Address [address] [place] [address] Care Team Providers Care Pear Picker Name Role Phone Unavailable Unavailable Unavailable Surgery Details Not on file Complications Check Surgery Details section. Procedure Estimated Blood Loss Check Surgery Details section. Procedure Findings Check Surgery Details section. Procedure Specimens Taken Check Surgery Details section.
--- OUTSIDE RECORDS SUMMARY | 2024-04-29 07:30 | XMS_ITS | Clinical Summary ---
Author Organization [facility] Address [address] [place] [address] Care Team Providers Care Perfume Compounder Name Role Phone Matt Hernandez APRN C.N.P. Primary Care Provid er Source Comments Patient records contain information from all sites at [facility]. For routine questions regarding patient records, call [phone] during business hours, M-F 8:00 AM - 5:00 PM Central Time. Record requests for emergency care only can be directed to [phone] at any time.[facility] Allergies No known active allergies Medications Medication [...] Office Visit Department of Orthopedic Surgery in [address] [phone] Chavez Randall, D.P.M. Diabetes Mellitus Type 2 (HCC) (Primary Dx) Discharge Disposition: Home or Self Care 02/15/2024 10:30 AM CDT Office Visit Department of Family Medicine, [facility], in [place], [place] [address] [place] [phone] Matt Hernandez, AIRAM, C.N.P. Diabetes Mellitus Type 2 (HCC) (Primary Dx); Hyperlipidemia; Hypertension Essential Primary 02/15/2024 6:59 AM CDT - 02/15/2024 11:59 PM CDT Hospital Encounter Department of Laboratory Medicine in [place], [place] [address] [phone] Amber Romero D.O. Diabetes Mellitus Type 2 Hyperglycemia (HCC); Hyperlipidemia Discharge Disposition: Home or Self Care 02/15/2024 6:58 AM CDT Hospital Encounter Department of Laboratory Medicine in [place], [place] [address] [phone] Amber Romero D.O. Diabetes Mellitus Type 2 Hyperglycemia (HCC); Hyperlipidemia; Pain Knee Left Discharge Disposition: Home or Self Care 02/15/2024 Clinical Communication Department of Family Medicine, [facility], in [place], [place] [address] [place] [phone] Matt Hernandez, AIRAM, C.N.PJosefina 02/11/2024 Documentation Department of Medical Genetics in [place], [place] [address] [place] [address] Kristi Castillo M.S., [facility] Participation in Child's Genetic Testing from [...] week 09/21/2021 How often do you attend [facility] or confucianism services? More than 4 times per year 09/21/2021 Do you belong to any clubs o r organizations such as confucianism groups, unions, fraternal or athletic groups, or [...] Answer Date Recorded PHQ-2 Score 0 08/22/2023 [facility] of Occupat ional [facility] - Occupational Stress Questionnaire Answer Date Recorded [...] place to sleep or slept in a residential (including now)? No 09/21/2021 Nutrition Answer Date [...] CDT Oxygen Saturation 95% 11/04/2021 10:43 AM GUT DROPPER Inhaled Oxygen Concentration - - Weight 117 [...] Diabetes Mellitus Type 2 Hyperglycemia (HCC) Hyperlipidemia [facility]. [facility]. [employer] Information MED. Routine 02/11/2024 10:28 AM CDT HIV-1/-2 AG AND AB SCREEN, PLASMA Routine 09/22/2021 4:41 PM GUT DROPPER Screening For Venereal Disease HCV AB SCRN [...] CDT Amber Romero D.O. LAB URINE ORDERABLES [facility] [address], [place] [address], [facility] OWAT [facility] [place] [address] [place] [address] * (ABNORMAL) Lipid Panel (02/15/2024 7:13 AM [...] CDT Amber Romero D.O. LAB BLOOD ADD-ON [facility] [address] [place] [address], [facility] OWAT [facility] in [place] [address] [place] [address] * CBC without Differential (02/15/2024 7:13 AM [...] D.O. LAB BLOOD ADD-ON Performing Organization Address [facility] Co de Phone Number [facility] [address], [place] [address], [facility] OWAT [facility] [place] [address] [place] [address] * (ABNORMAL) Hemoglobin A1c (02/15/2024 7:13 AM [...] D.O. LAB BLOOD ADD-ON Performing Organization Address City/[facility]/ZIP Co de Phone Number [facility] [address] [place] [address], [facility] OWAT [facility] [place] [address] [place] [address] * Comprehensive Metabolic Panel (02/15/2024 7:13 AM CDT) [facility] Potassium, P 4.4 3.6 - 5.2 [...] CDT Amber Romero D.O. LAB BLOOD ADD-ON [facility] [address] [facility] [place] [address], [place] [facility] in [place] [address] [place] [address] * [facility] X Medicine - Sent Out Lab (02/11/2024 10:28 AM CDT) Test Name rapid genome 02/11/2024 2:43 PM CDT [facility] Result SEE COMMENT 02/11/2024 3:33 PM CDT [facility] Comment: Specimen for relative received, testing to follow. See final combined results under proband specimen order when testing is complete. 02/11/2024 10:2 8 AM CDT 02/11/2024 2:43 PM CDT Tricia Bull M.D. LAB [facility] Instant Information MEDICINE [address] [place] [address], [address] [place] [address], [facility] [address] [place] [address], [address] [place] [address] * HIV-1/-2 Ag and Ab Screen, Plasma (09/22/2021 4:41 PM GUT DROPPER) HIV Ag/Ab Screen, P Negative Negative 09/24/2021 2:48 PM GUT DROPPER [facility] Comment: Negative result does not rule out HIV infection. If exposure to HIV infection occurred <14 days ago, contact the laboratory to request addition of HIV-1 RNA detection / quantification test. HIV-1 p24 Ag Screen, P Negative Negative 09/24/2021 2:48 PM GUT DROPPER [facility] Comment: Negative result does not rule out HIV infection. If exposure to HIV infection occurred <14 days ago, contact the laboratory to request addition of HIV-1 RNA detection / quantification test. HIV-1 Ab Screen, P Negative Negative 2020 2:48 PM GUT DROPPER [facility] Comment: Negative result does not rule out HIV infection. If exposure to HIV infection occurred <14 days ago, contact the laboratory to request addition of HIV-1 RNA detection / quantification test. HIV-2 Ab Screen, P Negative Negative 2020 2:48 PM GUT DROPPER [facility] Comment: Negative result does not rule out HIV infection. If exposure to HIV infection occurred <14 days ago, contact the laboratory to request addition of HIV-1 RNA detection / quantification test. Blood (Blood, Venous) 09/22/2021 4:41 PM GUT DROPPER 09/23/2021 11:57 AM GUT DROPPER Arleth Hernandez APRN, C.N.P., D.N.P. LAB M ICROBIOLOGY - BLOOD ORDERABLES Performing Organization Address [facility]/ZIP Co de Phone Number [facility] [address] [place] [address], [facility] WSC[facility] [place] [address] * HCV AB Scrn w/Reflex to HCV PCR, S (02/28/2018 8:25 AM CDT) HCV Ab Screen, S Negative Negative 03/01/2018 8:38 AM CDT [facility] Comment:Ymuwbe-qp-hxgdmm rat io is <1.00. Blood (Blood, Venous) 02/28/2018 8:25 AM CDT 03/01/2018 6:57 AM CDT Kar Shepherd APRN, C.N.P. LAB MICROBIOL OGY - BLOOD ORDERABLES [facility] [address] [place] [address] * Colonoscopy (04/28/2015) EXT Colonoscopy Abnormal - See Scanned Report for Details Normal - See Scanned Report for Details, HIMS - Report Received and Scanned Historical Provider GI PROCEDURE ORDERAB LES from Last 3 Months or Most Recently Relevant to Health Maintenance Care Teams Perfume Compounder Relationship Specialty Start Date End Date Matt Hernandez, AIRAM, C.N.P. [address] [place] [phone] PCP - General Family Medicine 02/15/24
--- OUTSIDE RECORDS SUMMARY | 2024-04-29 07:30 | XMS_ITS | Referral Summary ---
Author Organization [facility] Address [address] [place] [address] Care Team Providers Care Sport Psychologist Name Role Phone Matt Hernandez APRN, C.N.P. Primary Care Provid er Source Comments Patient records contain information from all sites at [facility]. For routine questions regarding patient records, call [phone] during business hours, M-F 8:00 AM - 5:00 PM Central Time. Record requests for emergency care only can be directed to [phone] at any time.[facility] Encounters Date Type Department Care Team Description 03/05/2024 8:30 AM CDT Office Visit Department of Orthopedic Surgery in [address] [phone] Chavez Randall D.P.MJosefina Diabetes Mellitus Type 2 (HCC) (Primary Dx) Discharge Disposition: Home or Self Care 02/15/2024 Clinical Communication Department of Family Medicine, [facility], in [place], [place] [address] [place] [phone] Matt Hernandez APRN, C.N.P. 02/15/2024 10:30 AM CDT Office Visit Department of Family Medicine, [facility], in [place], [place] [address] [place] [phone] Matt Hernandez APRN, C.N.P. Diabetes Mellitus Type 2 (HCC) (Primary Dx); Hyperlipidemia; Hypertension Essential Primary 02/15/2024 6:59 AM CDT - 02/15/2024 11:59 PM CDT Hospital Encounter Department of Laboratory Medicine in [place], [place] [address] [place] [address] Amber Romero D.O. Diabetes Mellitus Type 2 Hyperglycemia (HCC); Hyperlipidemia Discharge Disposition: Home or Self Care 02/15/2024 6:58 AM CDT Hospital Encounter Department of Laboratory Medicine in [place], [place] [address] [place] [address] Amber Romero D.O. Diabetes Mellitus Type 2 Hyperglycemia (HCC); Hyperlipidemia; Pain Knee Left Discharge Disposition: Home or Self Care 02/11/2024 Documentation Department of Medical Genetics in [place], [place] [address] [place] [address] Kristi Castillo M.S., [facility] Participation in Child's Genetic Testing from Last [...] How often do you attend chur or adventist services? More than 4 times per year 09/21/2021 Do you belong to any clubs o r organizations such as shinto groups, unions, fraternal or athletic groups, or [...] Answer Date Recorded PHQ-2 Score 0 08/22/2023 [facility] Occupat ional Health - Occupational Stress [...] place to sleep or slept in a [place] health care facility (including now)? No 09/21/2021 Nutrition Answer Date [...] CDT Oxygen Saturation 95% 11/04/2021 10:43 AM PROVISIONING ANALYST Inhaled Oxygen Concentration - - Weight 117 [...] Diabetes Mellitus Type 2 Hyperglycemia (HCC) Hyperlipidemia [facility]. Routine 02/11/2024 10:28 AM CDT HIV-1/-2 AG AND AB SCREEN, PLASMA Routine 09/22/2021 4:41 PM PROVISIONING ANALYST Screening For Venereal Disease HCV AB SCRN [...] CDT Amber Romero D.O. LAB URINE ORDERABLES [facility] [address] [place] [address], [facility] in [place] [address] [place] [address] * (ABNORMAL) Lipid Panel (02/15/2024 7:13 AM [...] CDT Amber Romero D.O. LAB BLOOD ADD-ON [facility] [address] [place] [address], [facility] in [place] [address] [place] [address] * CBC without Differential (02/15/2024 7:13 AM [...] CDT Amber Romero D.O. LAB BLOOD ADD-ON [facility] [address] [place] [address], [place] [facility] in [place] [address] [place] [address] * (ABNORMAL) Hemoglobin A1c (02/15/2024 7:13 AM [...] CDT Amber Romero D.O. LAB BLOOD ADD-ON [facility] [address] [place] [address], [facility] in [place] [address] [place] [address] * Comprehensive Metabolic Panel (02/15/2024 7:13 AM [...] CDT Amber Romero D.O. LAB BLOOD ADD-ON [facility] [address] [place] [address], [facility] [place] [address] [address] * [facility] - Sent [...] PM CDT Tricia CURRY MISC ORDERA BLES [facility] [address], [address] [place] [address], [place] [facility] [address], [address] [place] [address] * HIV-1/-2 Ag and Ab Screen, Plasma (09/22/2021 4:41 PM PROVISIONING ANALYST) HIV Ag/Ab Screen, P Negative Negative 09/24/2021 2:48 PM PROVISIONING ANALYST [facility] Comment: Negative result does not rule out HIV infection. If exposure to HIV infection occurred <14 days ago, contact the laboratory to request addition of HIV-1 RNA detection / quantification test. HIV-1 p24 Ag Screen, P Negative Negative 09/24/2021 2:48 PM PROVISIONING ANALYST [facility] Comment: Negative result does not rule out HIV infection. If exposure to HIV infection occurred <14 days ago, contact the laboratory to request addition of HIV-1 RNA detection / quantification test. HIV-1 Ab Screen, P Negative Negative 2020 2:48 PM PROVISIONING ANALYST [facility] Comment: Negative result does not rule out HIV infection. If exposure to HIV infection occurred <14 days ago, contact the laboratory to request addition of HIV-1 RNA detection / quantification test. HIV-2 Ab Screen, P Negative Negative 2020 2:48 PM PROVISIONING ANALYST [facility] Comment: Negative result does not rule out HIV infection. If exposure to HIV infection occurred <14 days ago, contact the laboratory to request addition of HIV-1 RNA detection / quantification test. Blood (Blood, Venous) 09/22/2021 4:41 PM PROVISIONING ANALYST 09/23/2021 11:57 AM PROVISIONING ANALYST Arleth Hernandez APRN, C.N.P., D.N.P. LAB M ICROBIOLOGY - BLOOD ORDERABLES [facility] [address] [place] [address], [place] [facility] in [place] [address] [place] [address] * HCV AB Scrn w/Reflex to HCV PCR, S (02/28/2018 8:25 AM CDT) HCV Ab Screen, S Negative Negative 03/01/2018 8:38 AM CDT [facility] Comment:Ojfmxg-la-boidfs rat io is <1.00. Blood (Blood, Venous) 02/28/2018 8:25 AM CDT 03/01/2018 6:57 AM CDT Kar Shepherd APRN, C.N.P. LAB MICROBIOL OGY - BLOOD ORDERABLES [facility] [address] [place] [address] * Colonoscopy (04/28/2015) Pathologist [facility] EXT Colonoscopy Abnormal - See Scanned Report for Details Normal - See Scanned Report for Details, HIMS - Report Received and Scanned Historical Provider GI PROCEDURE ORDERAB LES from Last 3 Months or Most Recently Relevant to Health Maintenance Care Teams Sport Psychologist Relationship Specialty Start Date End Date Matt Hernandez APRN, C.N.P. [address] [place] [phone] PCP - General Family Medicine 02/15/24
--- OUTSIDE RECORDS SUMMARY | 2024-04-29 07:30 | XMS_ITS | Encounter Summary ---
Author Organization [facility] Address [address] [place] [address] Care Team Providers Care Canal Equipment Mechanic Name Role Phone Matt Hernandez APRN, C.N.PJosefina Primary Care Provid er Reason for Referral * Outpatient (Routine) - Authorized Specialty Diagnoses / Procedures Referred By Marianela t Referred To Contact Orthopedic Surgery Chavez Randall D.P.M. [address] [place] [phone] [facility] Region Referral ID Status Reason Start Date Expiration Date V isits Requested Visits Authorized [id number] Authorized 03/05/2024 09/04/2025 1 1 Reason for Visit * Reason Comments Follow-up Follow-up Encounter Details Date Type Department Care Team ([facility] Contact Info) Description 03/05/2024 8:30 AM CDT Office Visit Department of Orthopedic Surgery in [place], [place] [address] [place] [phone] Chavez Randall D.P.M. [address] [place] [phone] Diabetes Mellitus Type 2 (HCC) (Primary Dx) [...] week 09/21/2021 How often do you attend [facility] or alevism services? More than 4 times per year 09/21/2021 Do you belong to any clubs o r organizations such as pentecostalism groups, unions, fraternal or athletic groups, or [...] [facility]at ional [facility] - Occupational Stress Questionnaire Answer Date [...] place to sleep or slept in a alf (including now)? No 09/21/2021 Nutrition Answer Date [...] Primary documented in this encounter Care Teams Canal Equipment Mechanic Relationship Specialty Start Date End Date Matt Hernandez APRN, C.N.P. [address] [place] [phone] PCP - General Family Medicine 02/15/24 documented as of this encounter
--- OUTSIDE RECORDS SUMMARY | 2024-04-29 07:31 | XMS_ITS | Encounter Summary ---
Author Organization [facility] Address [address] [place] [address] Care Team Providers Care Drug Safety Physician Name Role Phone Matt Hernandez APRN, C.N.P. Primary Care Provid er Reason for Referral * Outpatient (Routine) - Authorized Specialty Diagnoses / Procedures Referred By Marianela arzate Referred To Contact Family Medicine Matt Hernandez APRN, C.N.P. [address], [place] [address] [facility] Region Referral ID Status Reason Start Date Expiration Date V isits Requested Visits Authorized [id number] Authorized 02/15/2024 08/16/2025 1 1 Reason for Visit * Reason Comments Diabetes * Outpatient (Routine) - Closed Specialty Diagnoses / Procedures Referred By Marianela arzate Referred To Contact Family Medicine Diagnoses Diabetes Mellitus Type 2 Hyperglycemia (HCC) Hyperlipidemia Hypertension Essential Primary Amber Romero D.O. [address], [place] [address] [facility] Region Referral ID Status Reason Start Date Expiration Date Visits Re quested Visits Authorized [id number] Closed 09/19/2023 09/18/2026 1 1 Encounter Details Date Type Department Care Team (Late st Contact Info) Description 02/15/2024 10:30 AM CDT Office Visit Department of Family Medicine, [facility], in [place], [place] [address] [phone] Matt Hernandez, PAVILION CUTTER, C.N.P. [address] [place] [address] Diabetes Mellitus Type 2 (HCC) [...] often do you attend chur ch or buddhism services? More than 4 times per year 09/21/2021 Do you belong to any clubs o r organizations such as orthodox groups, unions, fraternal or athletic groups, or [...] Primary documented in this encounter Care Teams Drug Safety Physician Relationship Specialty Start Date End Date Matt Hernandez APRN, C.N.P. [address] [place] [phone] PCP - General Family Medicine 02/15/24 documented as of this encounter
--- OUTSIDE RECORDS SUMMARY | 2024-04-29 07:31 | XMS_ITS | Encounter Summary ---
Author Organization [facility] Address [address] [place] [address] Care Team Providers Care Chart Writer Name Role Phone Mary Arleth Torres APRN, C.N.P., D.N.P. Primary Care Provider Reason for Visit * Reason Comments Participation in Child's Genetic Testing Encounter Details Date Type Department Care Team (Late st Contact Info) Description 02/11/2024 Documentation Department of Medical Genetics in [place], [place] [address] [place] [address] Kristi Castillo M.S., [facility] [address] [place] [address] Participation in Child's Genetic Testing Social History [...] week 09/21/2021 How often do you attend [facility] or holiness services? More than 4 times per year 09/21/2021 Do you belong to any clubs o r organizations such as hindu groups, unions, fraternal or athletic groups, or [...] Answer Date Recorded PHQ-2 Score 0 08/22/2023 [facility] of Occupat ional Health - Occupational [...] place to sleep or slept in a prison (including now)? No 09/21/2021 Nutrition Answer Date [...] encounter Progress Notes * Kristi Castillo M.S., [facility] - 02/11/2024 8:45 AM CDT CHIEF COMPLAINT/PURPOSE [...] also included. Testing will be completed by [facility] clinical laboratory. PLAN: A blood sample [...] Primary documented in this encounter Care Teams Chart Writer Relationship Specialty Start Date End Date Arleth Hernandez APRN, C.N.P., D.N.P. [address] [place] [address] PCP - General 02/23/21 02/14/24 documented as of this encounter
--- OUTSIDE RECORDS SUMMARY | 2024-04-29 07:31 | XMS_ITS | Encounter Summary ---
Author Organization [facility] Address [address] [place] [address] Care Team Providers Care Operations Asst Name Role Phone Matt Hernandez APRN, C.N.P. Primary Care Provid er Encounter Details Date Type Department Care Team (Latest Contact Info) Description 02/15/2024 6:59 AM CDT - 02/15/2024 11:59 PM CDT Hospital Encounter Department of Laboratory Medicine in [place], [place] [address] [place] [phone] Amber Romero D.O. [address] [phone] Diabetes Mellitus Type 2 Hyperglycemia [...] How often do you attend chur or restorationism services? More than 4 times per year 09/21/2021 Do you belong to any clubs o r organizations such as latter-day groups, unions, fraternal or athletic groups, or [...] Date Recorded PHQ-2 Score 0 08/22/2023 [facility] of Occupat ional Health - [...] place to sleep or slept in a mcc (including now)? No 09/21/2021 Nutrition Answer Date [...] for diabetes control 1500 each 3 09/19/[address] tablet Take 81 mg by mouth daily. blood glucose ctl high,nml,low solutionIndications:Diabe cam Mellitus Type 2 Hyperglycemia (HCC) Glucose control solution provides an easy way to ensure accurate blood glucose testing. 1 each 11 09/19/2023 blood sugar diagnostic stripsIndications:Diabete s Mellitus [...] by mouth daily. 90 tablet 3 08/22/2023 pravastatin (PRAVACHOL) 40 mg tablet Take 1 [...] CDT Amber Romero D.O. LAB URINE ORDERABLES [facility] [address] [place] [address], [facility] [place] [address] [place] [address] documented in this encounter Visit Diagnoses Diagnosis Diabetes Mellitus Type 2 Hyperglycemia (HCC) Hyperlipidemia documented in this encounter Care Teams Operations Asst Relationship Specialty Start Date End Date Matt Hernandez APRN C.N.P. [address] [place] [phone] PCP - General Family Medicine 02/15/24 documented as of this encounter
--- OUTSIDE RECORDS SUMMARY | 2024-04-29 07:31 | XMS_ITS | Encounter Summary ---
Author Organization [facility] Address [address] [place] [address] Care Team Providers Care Carbon Paper Coating Machine Setter Name Role Phone Matt Hernandez APRN, C.N.P. Primary Care Provid er Encounter Details Date Type Department Care Team (Late st Contact Info) Description 02/15/2024 Clinical Communication Department of Family Medicine, [facility], in [place], [place] [address] [phone] Matt Hernandez APRN, C.N.P. [address] [phone] Social History Tobacco Use Types [...] 09/21/2021 How often do you attend [facility] or sabianist services? More than 4 times per year 09/21/2021 Do you belong to any clubs o r organizations such as anabaptist groups, unions, fraternal or athletic groups, or [...] Answer Date Recorded PHQ-2 Score 0 08/22/2023 [facility] of Occupat ional Health - Occupational [...] place to sleep or slept in a assisted (including now)? No 09/21/2021 Nutrition Answer Date [...] on filedocumented in this encounter Care Teams Carbon Paper Coating Machine Setter Relationship Specialty Start Date End Date Matt Hernandez APRN, C.N.P. [address] [place] [phone] PCP - General Family Medicine 02/15/24 documented as of this encounter
--- OUTSIDE RECORDS SUMMARY | 2024-04-29 07:31 | XMS_ITS | Clinical Summary ---
Author Organization [facility] Address [place], [place] [address] Care Team Providers Care Drapery Operator Name Role Phone Matt Hernandez FOREST RANGER Primary Care Provider [phone] Allergies No known active allergies Medications Medication [...] Comments Blood Pressure 124/81 10/30/2023 2:55 PM EGG PROCESSOR Pulse 52 10/30/2023 2:55 PM EGG PROCESSOR Temperature 36 ??C (96.8 ??F) 10/30/2023 1:45 PM EGG PROCESSOR Respiratory Rate 16 10/30/2023 2:55 PM EGG PROCESSOR Oxygen Saturation 93% 10/30/2023 2:55 PM EGG PROCESSOR Inhaled Oxygen Concentration - - Weight 121.6 kg (268 lb) 10/26/2023 3:33 PM EGG PROCESSOR Height 185.4 cm (6' 1) 10/26/2023 3:33 PM EGG PROCESSOR Body Mass Index 35.36 10/26/2023 3:33 PM EGG PROCESSOR Plan of Treatment Health Maintenance Due Date [...] Associated Diagnosis Comments COLONOSCOPY 10/09/2023 1:33 PM EGG PROCESSOR from Last 3 Months or Most Recently Relevant to Health Maintenance Results * COLONOSCOPY (10/09/2023 1:33 PM EGG PROCESSOR) 10/09/2023 1:33 PM EGG PROCESSOR Narrative Transcriptions Mihai Miranda MD - 10/09/2023 2:13 PM CST Patient Name: Gregorio Varghese Procedure Date: 10/09/2023 Gender: Male Date of : 1965 Admit Type: Ambulatory Procedure: Colonoscopy Proceduralist: Clyde Miranda MD [place] [facility] Referring MD: Clyde Miranda MD Indications/Pre-Op Diagnosis: High risk colon cancer surveillance:Personal history of colonic polyps Medications: Monitored Anesthesia Care Procedure Description: The procedure, indications, potential complications, (bleeding, perforation, infection, adverse medication reaction, missed lesionsor polyps) and alternatives available were explained to the patient, who appeared to understand and indicated this. Opportunity for questionswas provided and informed consent obtained. The endoscope [id number] was passed through the anus andadvanced to the cecum, identified by appendiceal orifice and ileocecal valve.The colonoscopy was performed with ease. The patient tolerated theprocedure well. The quality of the bowel preparation was evaluated using theBBPS ([place] Bowel Preparation Scale) with scores of: Right [...] 8:52 AM 04/28/2015 4:18 PM Care Teams Drapery Operator Relationship Specialty Start Date End Date Matt Hernandez, FOREST RANGER [address] [facility] [place] [phone] PCP - General Nurse Practitioner 10/26/23
--- OUTSIDE RECORDS SUMMARY | 2024-04-29 07:31 | XMS_ITS | Encounter Summary ---
Author Organization [facility] Address [address] [place] [address] Care Team Providers Care Street Cleaner Name Role Phone Matt Hernandez APRN C.N.P. Primary Care Provid er Encounter Details Date Type Department Care Team (Latest Contact Info) Description 02/15/2024 6:58 AM CDT Hospital Encounter Department of Laboratory Medicine in [place], [place] [address] [place] [phone] Amber Romero D.O. [address], [place] [address] Diabetes Mellitus Type 2 Hyperglycemia [...] How often do you attend chur or pentecostalism services? More than 4 times per year 09/21/2021 Do you belong to any clubs o r organizations such as sikhism groups, unions, fraternal or athletic groups, or [...] Answer Date Recorded PHQ-2 Score 0 08/22/2023 [facility] of Occupat ional Health - Occupational Stress [...] place to sleep or slept in a correction (including now)? No 09/21/2021 Nutrition Answer Date [...] CDT Amber Romero D.O. LAB BLOOD ADD-ON [facility] [address] [place] [address], [facility] in [place] [address] [place] [address] * (ABNORMAL) Lipid Panel (02/15/2024 7:13 AM [...] CDT Amber Romero D.O. LAB BLOOD ADD-ON [facility] [address] [place] [address], [facility] in [place] [address] [place] [address] * Comprehensive Metabolic Panel (02/15/2024 7:13 AM [...] D.O. LAB BLOOD ADD-ON Performing Organization Address [facility] Co de Phone Number [facility] [address] [place] [address], [facility] [place] [address] [place] [address] * (ABNORMAL) Hemoglobin A1c (02/15/2024 7:13 AM [...] D.O. LAB BLOOD ADD-ON Performing Organization Address City/[facility]/ZIP Co de Phone Number [facility] [address] [place] [address], [place] [address], [facility] [place] [address] [place] [address] documented in this encounter Visit Diagnoses Diagnosis Diabetes Mellitus Type 2 Hyperglycemia (HCC) Hyperlipidemia Pain Knee Left documented in this encounter Care Teams Street Cleaner Relationship Specialty Start Date End Date Matt Hernandez APRN, C.N.P. [address] [place] [phone] PCP - General Family Medicine 02/15/24 documented as of this encounter
[2024-04-29] MEDS: BUPIVACAINE 0.5% 30 ML INJECTION (08:00)
[2024-04-29] MEDS: ETHYL CHLORIDE 1 APPLICATION 1 APPLIC TOPICAL (08:00)
[2024-04-29] MEDS: lidocaine HCL 2 % MULTIDOSE 20 ML VIAL 4 ML INJECTION (08:29)
[2024-04-29] MEDS: BUPIVACAINE 0.5% 30 ML 4 ML INJECTION (08:29)
--- NOTE | 2024-04-29 09:21 | P.ORPRC_ITS ---
Procedure Note Date of procedure: 04/29/24 Procedure: Preop diagnosis: Left thumb crush injury with tuft fracture and nail bed laceration Postop diagnosis: Left thumb crush injury with tuft fracture and nail bed laceration Procedure: Nail bed laceration repair, closed treatment of distal phalanx fracture Anesthesia: Local Surgeon: Evaristo Correia MD management assistant: KYRIE Capellan EBL: 2 mL Complications: None Specimens: None Drains: None Indications: The patient has a history of left thumb crush injury with distal phalanx fracture and nail bed laceration. Nail bed laceration repair was recommended. The risks, benefits alternatives and expected outcomes were discussed in detail. These included but were not limited to: Infection, bleeding, injury to blood vessel or nerve, venous thromboembolism. All questions were answered to their satisfaction. The patient was placed supine on the operating room table. Local anesthesia was established with a digital block using 0.5% Marcaine without epinephrine and 2% lidocaine without epinephrine. The hand was prepped and draped in usual sterile fashion. The tournikot was used. The nail plate was carefully elevated off of the sterile matrix with the Cate and was removed. It was cleaned up and soaked in Betadine on the back table. There was a significant amount of subungual hematoma which was evacuated. The sterile matrix was irrigated with normal saline and carefully inspected. There was a large transverse laceration in the central aspect of the sterile matrix. The germinal matrix was inspected and was found to be normal. There are radial lacerations of the paronychia both radially and ulnarly. The ulnar laceration is parallel with a 2nd laceration. The skin bridge between the 2 is quite thin and likely not viable. One of the fracture fragments deep to the sterile matrix was reduced volarly with the Adson pickup. The nail bed laceration was repaired with multiple 5-0 chromic simple, interrupted sutures. This provided an anatomic repair of the laceration. The radial and ulnar lacerations in the paronychia M were repaired with a 3-0 nylon in a simple interrupted fashion. The nail plate was reduced under the eponychium. It was secured to the eponychium with a 3-0 nylon suture. This was supplemented with 2x 3-0 simple sutures at the distal aspect of the nail plate. The tournikot was released. A soft dressing was applied. Sponge and needle counts were correct x 2. The patient tolerated the procedure well, there were no apparent complications. They were sent to same day surgery in satisfactory condition. Plan: Use of the hand as tolerates. Follow up in the office on Sunday this week for a wound check. Suture removal at 2 weeks.
== END 2024-04-29 09:41 | disposition home or self-care (01) ==
PROVIDERS: Visit Provider Orthopaedic Surgery
PROC: 0HQQXZZ Repair Finger Nail, External Approach (ICD-10-PCS; CPT 11760; principal; 2024-04-29 08:15)
DX: S62.522A Displaced fracture of distal phalanx of left thumb, initial encounter for closed fracture (principal); S61.112A Laceration without foreign body of left thumb with damage to nail, initial encounter; W23.0XXA Caught, crushed, jammed, or pinched between moving objects, initial encounter
CPT/HCPCS: 26750; 11760; J0665